=== PATIENT | female | born 1940 | race Caucasian/White ===

== ENCOUNTER → 2019-04-11 | Outpatient (CLI) | payer MEDICARE ==
[~2019-04-11] MED LIST: AMLO10 PO; ASPI81CH; Diovan320 MG; HYDACE10B PO; HYDCHL25; HYDSUL200; LOSA50; META800 PO; METTREX2.5; OLMESARTAN-HCT1 EAC1 PO; ONDA8ODT MM; VALD20 PO
== END | disposition home or self-care (01) ==
LOC: LAB EV 10:05 → LAB SHORT 10:05
DX: L03.90 Cellulitis, unspecified (principal)
CPT/HCPCS: 87070; 87205

== ENCOUNTER 2019-04-24 09:21 | Day surgery (SDC) | payer MEDICARE ==
[~2019-04-24] VITALS: Ht 149.9 cm; Wt 97.1 kg
[~2019-04-24 09:21] MED LIST changes: -AMLO10 PO; -OLMESARTAN-HCT1 EAC1 PO
[2019-04-24] MEDS ORDERED: OLMESARTAN-HCT1 EAC1 PO (10:11)
[2019-04-24] MEDS ORDERED: AMLO10 PO (10:12)
[2019-04-26] MEDS ORDERED: Norco 5-325 Ta1 EACH PO (18:39)
[2019-04-26] MEDS ORDERED: Keflex500 MG PO (18:39)
== END 2019-04-24 11:38 | disposition home or self-care (01) ==
LOC: ORSCSDS 09:21
PROVIDERS: Otolaryngology
PROC: 03BT0ZX Excision of Left Temporal Artery, Open Approach, Diagnostic (ICD-10-PCS; principal; 2019-04-24 11:30)
DX: M31.6 Other giant cell arteritis (principal); I10 Essential (primary) hypertension; F03.90 Unspecified dementia, unspecified severity, without behavioral disturbance, psychotic disturbance, mood disturbance, and anxiety; E66.01 Morbid (severe) obesity due to excess calories; Z68.41 Body mass index [BMI] 40.0-44.9, adult; Z79.899 Other long term (current) drug therapy; Z79.82 Long term (current) use of aspirin
CPT/HCPCS: 88305; 88313; J2250; J2704; J3010; J7120

== ENCOUNTER 2019-04-30 06:45 | Emergency (ER) | payer MEDICARE ==
[~2019-04-30] VITALS: Ht 149.9 cm; Wt 99.8 kg
[~2019-04-30 06:45] MED LIST changes: +AMLO10 PO; +Keflex500 MG PO; +Norco 5-325 Ta1 EACH PO; +OLMESARTAN-HCT1 EAC1 PO
[2019-04-30] MEDS ORDERED: HYDSUL200 PO (07:06)
[2019-04-30] MEDS ORDERED: VIT D3 (07:07)
== END 2019-04-30 11:00 | disposition home or self-care (01) ==
LOC: ER 06:45
DX: K59.00 Constipation, unspecified (principal); M54.5 Low back pain; R55 Syncope and collapse; Z88.8 Allergy status to other drugs, medicaments and biological substances; Z88.5 Allergy status to narcotic agent; Z79.899 Other long term (current) drug therapy; I10 Essential (primary) hypertension
CPT/HCPCS: 72100; 74018; 99283-25

== ENCOUNTER 2020-07-31 11:47 | Day surgery (SDC) | payer MEDICARE ==
[~2020-07-31] VITALS: Ht 149.9 cm; Wt 75.2 kg
[~2020-07-31 11:47] MED LIST changes: +ALEN70 PO; +ASPI325EC PO; +ATOR10 PO; +HYDSUL200 PO; +METTREX2.5 PO; +MULTIPLE VITAM1 EACH PO; +OLMESARTAN-HCT1 EAC3 PO; +VIT D3
[2020-07-31] MEDS ORDERED: Caltrate-600 W1 EACH (12:10)
== END 2020-07-31 13:50 | disposition home or self-care (01) ==
LOC: ORSCSDS 11:47
PROVIDERS: Surgery
PROC: 0DJD8ZZ Inspection of Lower Intestinal Tract, Via Natural or Artificial Opening Endoscopic (ICD-10-PCS; principal; 2020-07-31 12:45)
DX: Z12.11 Encounter for screening for malignant neoplasm of colon (principal); Z86.010 Personal history of colon polyps; I10 Essential (primary) hypertension; E66.9 Obesity, unspecified; Z68.33 Body mass index [BMI] 33.0-33.9, adult; Z79.899 Other long term (current) drug therapy
CPT/HCPCS: J2704

== ENCOUNTER → 2020-09-25 | Outpatient (CLI) | payer MEDICARE ==
[~2020-09-25] MED LIST changes: +Caltrate-600 W1 EACH
[2020-09-25 16:20] LABS: BASOPHILS ABSOLUTE AUTO 0.06 K/mm3 (0.00-0.23); BASOPHILS PERCENT AUTO 1 % (0-2); EOSINOPHILS PERCENT AUTO 1 % (0-6); Hematocrit 39.3 % (33.0-51.0); Hemoglobin 13.6 g/dL (11.5-16.0); IMMATURE GRAN ABSOLUTE AUTO 0.03 K/mm3 (0.00-0.10); IMMATURE GRAN PERCENT AUTO 0 % (0-1); LYMPHOCYTES ABSOLUTE AUTO 1.78 K/mm3 (0.84-5.20); LYMPHOCYTES PERCENT AUTO 20 % (21-46); MONOCYTES ABSOLUTE AUTO 0.98 K/mm3 (0.16-1.47); MONOCYTES PERCENT AUTO 11 % (4-13); Mean Corpuscular HGB 30.6 pg (26.0-34.0); Mean Corpuscular HGB Conc 34.6 g/dL (31.5-36.5); Mean Corpuscular Volume 89 fL (80-100); Mean Platelet Volume 11.1 fL (9.1-12.4); NEUTROPHILS ABSOLUTE AUTO 6.09 K/mm3 (1.96-9.15); NEUTROPHILS PERCENT AUTO 67 % (41-73); Platelet Count 444 K/mm3 (150-400); RDW Coefficient Variation 13.9 % (11.7-14.2); RDW Standard Deviation 44.5 fL (35.1-46.3); Red Blood Cell Count 4.44 M/mm3 (3.80-5.20); White Blood Cell Count 9.04 K/mm3 (4.00-11.30)
== END | disposition home or self-care (01) ==
LOC: LAB SHORT 14:54 → LAB 14:54
PROVIDERS: Internal Medicine Rheumatology
DX: M06.9 Rheumatoid arthritis, unspecified (principal)
CPT/HCPCS: 84450; 85025; 85651

== ENCOUNTER → 2021-01-01 | Outpatient (CLI) | payer MEDICARE ==
[2021-01-01 15:02] LABS: BASOPHILS ABSOLUTE AUTO 0.05 K/mm3 (0.00-0.23); BASOPHILS PERCENT AUTO 1 % (0-2); EOSINOPHILS ABSOLUTE AUTO 0.07 K/mm3 (0.00-0.68); EOSINOPHILS PERCENT AUTO 1 % (0-6); Hematocrit 40.7 % (33.0-51.0); Hemoglobin 13.5 g/dL (11.5-16.0); IMMATURE GRAN ABSOLUTE AUTO 0.02 K/mm3 (0.00-0.10); IMMATURE GRAN PERCENT AUTO 0 % (0-1); LYMPHOCYTES PERCENT AUTO 15 % (21-46); MONOCYTES PERCENT AUTO 9 % (4-13); Mean Corpuscular HGB 29.3 pg (26.0-34.0); Mean Corpuscular HGB Conc 33.2 g/dL (31.5-36.5); Mean Corpuscular Volume 89 fL (80-100); Mean Platelet Volume 10.7 fL (9.1-12.4); NEUTROPHILS ABSOLUTE AUTO 4.89 K/mm3 (1.96-9.15); NEUTROPHILS PERCENT AUTO 74 % (41-73); Platelet Count 426 K/mm3 (150-400); RDW Coefficient Variation 14.4 % (11.7-14.2); RDW Standard Deviation 45.7 fL (35.1-46.3); White Blood Cell Count 6.63 K/mm3 (4.00-11.30)
== END | disposition home or self-care (01) ==
LOC: LAB SHORT 09:00 → LAB 09:00
PROVIDERS: Internal Medicine Rheumatology
DX: M06.9 Rheumatoid arthritis, unspecified (principal)
CPT/HCPCS: 84450; 85025; 85651

== ENCOUNTER → 2021-04-01 | Outpatient (CLI) | payer MEDICARE ==
[2021-04-01 13:33] LABS: BASOPHILS ABSOLUTE AUTO 0.04 K/mm3 (0.00-0.23); BASOPHILS PERCENT AUTO 1 % (0-2); EOSINOPHILS ABSOLUTE AUTO 0.08 K/mm3 (0.00-0.68); EOSINOPHILS PERCENT AUTO 2 % (0-6); Hematocrit 38.9 % (33.0-51.0); Hemoglobin 13.1 g/dL (11.5-16.0); IMMATURE GRAN ABSOLUTE AUTO 0.02 K/mm3 (0.00-0.10); IMMATURE GRAN PERCENT AUTO 0 % (0-1); LYMPHOCYTES ABSOLUTE AUTO 1.09 K/mm3 (0.84-5.20); LYMPHOCYTES PERCENT AUTO 22 % (21-46); MONOCYTES ABSOLUTE AUTO 0.53 K/mm3 (0.16-1.47); MONOCYTES PERCENT AUTO 11 % (4-13); Mean Corpuscular HGB 29.8 pg (26.0-34.0); Mean Corpuscular HGB Conc 33.7 g/dL (31.5-36.5); Mean Corpuscular Volume 89 fL (80-100); Mean Platelet Volume 10.9 fL (9.1-12.4); NEUTROPHILS ABSOLUTE AUTO 3.24 K/mm3 (1.96-9.15); NEUTROPHILS PERCENT AUTO 65 % (41-73); Platelet Count 414 K/mm3 (150-400); RDW Coefficient Variation 13.8 % (11.7-14.2); RDW Standard Deviation 44.6 fL (35.1-46.3); Red Blood Cell Count 4.39 M/mm3 (3.80-5.20)
== END | disposition home or self-care (01) ==
LOC: LAB SHORT 09:35
PROVIDERS: Internal Medicine Rheumatology
DX: M06.9 Rheumatoid arthritis, unspecified (principal)
CPT/HCPCS: 84450; 85025; 85651

== ENCOUNTER → 2021-07-23 | Outpatient (CLI) | payer MEDICARE ==
[2021-07-23 13:28] LABS: BASOPHILS ABSOLUTE AUTO 0.06 K/mm3 (0.00-0.23); BASOPHILS PERCENT AUTO 1 % (0-2); EOSINOPHILS ABSOLUTE AUTO 0.16 K/mm3 (0.00-0.68); EOSINOPHILS PERCENT AUTO 2 % (0-6); Hematocrit 38.4 % (33.0-51.0); Hemoglobin 13.2 g/dL (11.5-16.0); IMMATURE GRAN ABSOLUTE AUTO 0.01 K/mm3 (0.00-0.10); IMMATURE GRAN PERCENT AUTO 0 % (0-1); LYMPHOCYTES ABSOLUTE AUTO 1.31 K/mm3 (0.84-5.20); LYMPHOCYTES PERCENT AUTO 20 % (21-46); MONOCYTES ABSOLUTE AUTO 0.77 K/mm3 (0.16-1.47); MONOCYTES PERCENT AUTO 12 % (4-13); Mean Corpuscular HGB 30.1 pg (26.0-34.0); Mean Corpuscular HGB Conc 34.4 g/dL (31.5-36.5); Mean Corpuscular Volume 88 fL (80-100); Mean Platelet Volume 10.5 fL (9.1-12.4); NEUTROPHILS ABSOLUTE AUTO 4.27 K/mm3 (1.96-9.15); NEUTROPHILS PERCENT AUTO 65 % (41-73); Platelet Count 409 K/mm3 (150-400); RDW Coefficient Variation 13.9 % (11.7-14.2); RDW Standard Deviation 44.3 fL (35.1-46.3); Red Blood Cell Count 4.38 M/mm3 (3.80-5.20); White Blood Cell Count 6.58 K/mm3 (4.00-11.30)
== END | disposition home or self-care (01) ==
LOC: LAB SHORT 09:05
PROVIDERS: Internal Medicine Rheumatology
DX: M06.9 Rheumatoid arthritis, unspecified (principal)
CPT/HCPCS: 84450; 85025; 85651

== ENCOUNTER → 2022-01-20 | Outpatient (CLI) | payer MEDICARE ==
[2022-01-20 15:30] LABS: BASOPHILS ABSOLUTE AUTO 0.06 K/mm3 (0.00-0.23); BASOPHILS PERCENT AUTO 1 % (0-2); EOSINOPHILS ABSOLUTE AUTO 0.06 K/mm3 (0.00-0.68); EOSINOPHILS PERCENT AUTO 1 % (0-6); Hematocrit 37.9 % (33.0-51.0); Hemoglobin 12.9 g/dL (11.5-16.0); IMMATURE GRAN ABSOLUTE AUTO 0.04 K/mm3 (0.00-0.10); IMMATURE GRAN PERCENT AUTO 1 % (0-1); LYMPHOCYTES ABSOLUTE AUTO 1.63 K/mm3 (0.84-5.20); LYMPHOCYTES PERCENT AUTO 22 % (21-46); MONOCYTES ABSOLUTE AUTO 0.85 K/mm3 (0.16-1.47); MONOCYTES PERCENT AUTO 11 % (4-13); Mean Corpuscular HGB 30.8 pg (26.0-34.0); Mean Corpuscular Volume 91 fL (80-100); Mean Platelet Volume 10.3 fL (9.1-12.4); NEUTROPHILS ABSOLUTE AUTO 4.86 K/mm3 (1.96-9.15); NEUTROPHILS PERCENT AUTO 65 % (41-73); Platelet Count 410 K/mm3 (150-400); RDW Coefficient Variation 14.6 % (11.7-14.2); RDW Standard Deviation 47.9 fL (35.1-46.3); Red Blood Cell Count 4.19 M/mm3 (3.80-5.20)
[2022-01-20 15:49] LABS: Albumin, Blood 2.1 g/dL (3.4-5.0); Albumin/Globulin Ratio 0.7 (0.8-1.8); Bilirubin, Total 0.3 mg/dL (0.1-1.0); Bun/Creatinine Ratio 39.7 (12.0-20.0); Calcium, Blood 8.2 mg/dL (8.5-10.1); Creatinine, Blood 0.48 mg/dL (0.40-1.00); Globulin, Blood 3.2 g/dL (2.2-4.0); Potassium, Blood 3.4 mmol/L (3.5-5.5); Total Protein, Blood 5.3 g/dL (6.4-8.2)
== END | disposition home or self-care (01) ==
LOC: LAB SHORT 09:02 → LAB 09:02
PROVIDERS: Internal Medicine Rheumatology
DX: M06.9 Rheumatoid arthritis, unspecified (principal)
CPT/HCPCS: 80053; 85025; 85651

== ENCOUNTER → 2022-05-19 | Outpatient (CLI) | payer MEDICARE ==
[~2022-05-19] MED LIST changes: +Benicar40 MG PO; +CHLO25B PO; +FOSAMAX70 MG PO; +KLOR-CON 1010 ME1 PO; +METHOTREXATE2.5 M1 PO; +METO25ER PO; +PLAQUENIL200 M1 PO; +PRED5 PO; +TRAM50 PO
[2022-05-19 18:00] LABS: BASOPHILS ABSOLUTE AUTO 0.05 K/mm3 (0.00-0.23); BASOPHILS PERCENT AUTO 0 % (0-2); EOSINOPHILS ABSOLUTE AUTO 0.07 K/mm3 (0.00-0.68); EOSINOPHILS PERCENT AUTO 1 % (0-6); Hematocrit 37.4 % (33.0-51.0); Hemoglobin 13.1 g/dL (11.5-16.0); IMMATURE GRAN ABSOLUTE AUTO 0.09 K/mm3 (0.00-0.10); IMMATURE GRAN PERCENT AUTO 1 % (0-1); LYMPHOCYTES PERCENT AUTO 13 % (21-46); MONOCYTES ABSOLUTE AUTO 0.97 K/mm3 (0.16-1.47); MONOCYTES PERCENT AUTO 8 % (4-13); Mean Corpuscular HGB 30.9 pg (26.0-34.0); Mean Corpuscular Volume 88 fL (80-100); Mean Platelet Volume 10.8 fL (9.1-12.4); NEUTROPHILS PERCENT AUTO 77 % (41-73); Platelet Count 430 K/mm3 (150-400); RDW Coefficient Variation 14.1 % (11.7-14.2); RDW Standard Deviation 45.3 fL (35.1-46.3); Red Blood Cell Count 4.24 M/mm3 (3.80-5.20); White Blood Cell Count 11.48 K/mm3 (4.00-11.30)
[2022-05-19 19:59] LABS: Albumin, Blood 2.8 g/dL (3.4-5.0); Albumin/Globulin Ratio 0.8 (0.8-1.8); Bilirubin, Total 0.4 mg/dL (0.1-1.0); Bun/Creatinine Ratio 65.3 (12.0-20.0); Calcium, Blood 9.4 mg/dL (8.5-10.1); Creatinine, Blood 0.34 mg/dL (0.40-1.00); Globulin, Blood 3.4 g/dL (2.2-4.0); Potassium, Blood 3.4 mmol/L (3.5-5.5); Total Protein, Blood 6.2 g/dL (6.4-8.2)
== END | disposition home or self-care (01) ==
LOC: LAB 14:55 → LAB SHORT 14:55
PROVIDERS: Internal Medicine Rheumatology
DX: M06.9 Rheumatoid arthritis, unspecified (principal)
CPT/HCPCS: 80053; 85025; 85651

== ENCOUNTER → 2022-11-18 | Outpatient (CLI) | payer MEDICARE ==
[2022-11-18 14:38] LABS: Albumin, Blood 2.7 g/dL (3.4-5.0); Albumin/Globulin Ratio 0.8 (0.8-1.8); Bilirubin, Total 0.4 mg/dL (0.1-1.0); Bun/Creatinine Ratio 44.8 (12.0-20.0); Calcium, Blood 8.9 mg/dL (8.5-10.1); Creatinine, Blood 0.56 mg/dL (0.40-1.00); Globulin, Blood 3.5 g/dL (2.2-4.0); Potassium, Blood 4.7 mmol/L (3.5-5.5); Total Protein, Blood 6.2 g/dL (6.4-8.2)
[2022-11-18 14:52] LABS: BASOPHILS ABSOLUTE AUTO 0.07 K/mm3 (0.00-0.23); BASOPHILS PERCENT AUTO 1 % (0-2); EOSINOPHILS ABSOLUTE AUTO 0.03 K/mm3 (0.00-0.68); EOSINOPHILS PERCENT AUTO 0 % (0-6); Hematocrit 35.5 % (33.0-51.0); Hemoglobin 12.4 g/dL (11.5-16.0); IMMATURE GRAN ABSOLUTE AUTO 0.11 K/mm3 (0.00-0.10); IMMATURE GRAN PERCENT AUTO 1 % (0-1); LYMPHOCYTES ABSOLUTE AUTO 1.43 K/mm3 (0.84-5.20); LYMPHOCYTES PERCENT AUTO 14 % (21-46); MONOCYTES PERCENT AUTO 10 % (4-13); Mean Corpuscular HGB 30.3 pg (26.0-34.0); Mean Corpuscular HGB Conc 34.9 g/dL (31.5-36.5); Mean Corpuscular Volume 87 fL (80-100); Mean Platelet Volume 10.6 fL (9.1-12.4); NEUTROPHILS ABSOLUTE AUTO 7.93 K/mm3 (1.96-9.15); NEUTROPHILS PERCENT AUTO 75 % (41-73); Platelet Count 430 K/mm3 (150-400); RDW Coefficient Variation 14.3 % (11.7-14.2); RDW Standard Deviation 44.9 fL (35.1-46.3); Red Blood Cell Count 4.09 M/mm3 (3.80-5.20); White Blood Cell Count 10.57 K/mm3 (4.00-11.30)
== END | disposition home or self-care (01) ==
LOC: LAB 13:12 → LAB SHORT 13:12
PROVIDERS: Internal Medicine Rheumatology
DX: M06.9 Rheumatoid arthritis, unspecified (principal)
CPT/HCPCS: 80053; 85025; 85651

== ENCOUNTER 2022-11-26 07:31 | Inpatient (IN) | payer MEDICARE ==
[~2022-11-26] VITALS: Ht 149.9 cm; Wt 96.0 kg
[2022-11-26 08:26] LABS: BASOPHILS ABSOLUTE AUTO 0.04 K/mm3 (0.00-0.23); BASOPHILS PERCENT AUTO 0 % (0-2); EOSINOPHILS ABSOLUTE AUTO 0.01 K/mm3 (0.00-0.68); EOSINOPHILS PERCENT AUTO 0 % (0-6); Hematocrit 34.4 % (33.0-51.0); Hemoglobin 12.4 g/dL (11.5-16.0); IMMATURE GRAN ABSOLUTE AUTO 0.21 K/mm3 (0.00-0.10); IMMATURE GRAN PERCENT AUTO 1 % (0-1); LYMPHOCYTES ABSOLUTE AUTO 0.86 K/mm3 (0.84-5.20); LYMPHOCYTES PERCENT AUTO 5 % (21-46); MONOCYTES PERCENT AUTO 8 % (4-13); Mean Corpuscular HGB 30.2 pg (26.0-34.0); Mean Corpuscular Volume 84 fL (80-100); Mean Platelet Volume 9.6 fL (9.1-12.4); NEUTROPHILS ABSOLUTE AUTO 15.14 K/mm3 (1.96-9.15); NEUTROPHILS PERCENT AUTO 85 % (41-73); Platelet Count 417 K/mm3 (150-400); RDW Coefficient Variation 13.7 % (11.7-14.2); RDW Standard Deviation 41.3 fL (35.1-46.3); White Blood Cell Count 17.76 K/mm3 (4.00-11.30)
[2022-11-26 08:36] LABS: Source, Urine Clean Catch
[2022-11-26 08:38] LABS: Appearance, Urine Clear (Clear); Bilirubin, Urine Neg (Neg); Blood, Urine 4+ (Neg); Color, Urine Yellow (P-Yellow); Glucose Qualitative, Urine Neg (Neg); Ketones, Urine Neg (Neg); Leukocyte Esterase, Urine Neg (Neg); Nitrite, Urine Neg (Neg); Protein, Urine 4+ (Neg); Specific Gravity, Urine 1.015 (1.003-1.022); Urobilinogen, Urine NORM (Normal)
[2022-11-26 08:45] LABS: Amorphous Light (0-Heavy); Bacteria Few /hpf; Granular Casts 0-2 /lpf (0); Hyaline Casts 0-2 /lpf (0-2); Mucus Light (0-Heavy); Squamous Epithelial Cells Rare /hpf (Few); White Blood Cells, Urine 0-2 /hpf (0-5)
[2022-11-26 08:48] LABS: Albumin, Blood 2.5 g/dL (3.4-5.0); Albumin/Globulin Ratio 0.7 (0.8-1.8); Bilirubin, Total 0.7 mg/dL (0.1-1.0); Bun/Creatinine Ratio 31.1 (12.0-20.0); Calcium, Blood 9.2 mg/dL (8.5-10.1); Creatinine, Blood 0.51 mg/dL (0.40-1.00); Globulin, Blood 3.8 g/dL (2.2-4.0); Potassium, Blood 4.1 mmol/L (3.5-5.5); Total Protein, Blood 6.3 g/dL (6.4-8.2)
[2022-11-26] MEDS ORDERED: SPIRONOLACTONE50 MG PO (11:50)
[2022-11-26 13:14] VITALS: BP 149/75
[2022-11-26 13:16] VITALS: BP 203/55
[2022-11-26 15:03] VITALS: BP 167/50
--- NOTE | 2022-11-26 15:36 | NUR ---
PT ADMITTED TO ROOM. CALLED DR BUITRAGO BP NEDS START TO START ALL LBP MEDS NOW. HOLD METOPROLOL NITE DOSE UNTIL TOMORROW, STARTING 6 HRS EARLY.
--- NOTE | 2022-11-26 16:52 | NUR ---
Pt. gopal awake in bed and welcomes my visit. Pts. sister is present. Pt. is pleasant. Facilitiate a life review including details of her present condition. 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 Pt. displays evidence of engagement and awareness, Prayed with Pt. Pt. verbalized gratitude for the spiritual care visit.
--- NOTE | 2022-11-26 17:29 | NUR ---
PT CHART REVEIWED FOR ADMISSION
[2022-11-26 17:36] VITALS: BP 163/65
--- NOTE | 2022-11-26 17:53 | NUR ---
PT PLEASANT SINCE ADMIT TO FLOOR. MEDICATED FOR NAUSEA AND PAIN ONCE THIS SHIFT. PT STATES FEELS SOME BETTER. SODIUM UP TO 122 FROM 119. SOME PAIN FROM ANKLE, NO OTHER CONCERNS NOTED. FAMILY ASKED ABOUT WBC. ADVISED HER TO SPEAK TO TOMORROW WHEN IN ROOM. BED IN LOW POSITION, CALL LITE IN REACH, CALLS APPROP
[2022-11-26 19:35] VITALS: BP 159/51
--- NOTE | 2022-11-27 04:16 | NUR ---
SHIFT SUMMARY PATIENT HAD NO ACUTE CHANGES. AXOX 3 AND BEDREST REPORTING SHE IS TOO WEAK THIS SHIFT TO USE BSC. USED BEDPAN AND NOW PUREWICK IN PLACE. REPORTED LEFT FOOT PAIN AND ULTRAM 50 MG GIVEN PER EMAR. DENIES CHEST PAIN, SOB, AND N/V. VSS/AFEBRILE. PIV REMAINS INTACT. TELE MONITOR NSR 61. CALL LIGHT IN REACH. BED IN LOWEST POSITION. WILL CONTINUE TO MONITOR UNTIL DAY SHIFT NURSE ASSUMES CARE.
[2022-11-27 04:33] VITALS: BP 139/53
[2022-11-27 05:44] LABS: BASOPHILS ABSOLUTE AUTO 0.03 K/mm3 (0.00-0.23); BASOPHILS PERCENT AUTO 0 % (0-2); EOSINOPHILS ABSOLUTE AUTO 0.01 K/mm3 (0.00-0.68); EOSINOPHILS PERCENT AUTO 0 % (0-6); Hematocrit 31.3 % (33.0-51.0); Hemoglobin 11.4 g/dL (11.5-16.0); IMMATURE GRAN ABSOLUTE AUTO 0.22 K/mm3 (0.00-0.10); IMMATURE GRAN PERCENT AUTO 1 % (0-1); LYMPHOCYTES ABSOLUTE AUTO 1.45 K/mm3 (0.84-5.20); LYMPHOCYTES PERCENT AUTO 8 % (21-46); MONOCYTES ABSOLUTE AUTO 1.74 K/mm3 (0.16-1.47); MONOCYTES PERCENT AUTO 9 % (4-13); Mean Corpuscular HGB 30.4 pg (26.0-34.0); Mean Corpuscular HGB Conc 36.4 g/dL (31.5-36.5); Mean Corpuscular Volume 84 fL (80-100); NEUTROPHILS ABSOLUTE AUTO 14.98 K/mm3 (1.96-9.15); NEUTROPHILS PERCENT AUTO 81 % (41-73); Platelet Count 387 K/mm3 (150-400); RDW Coefficient Variation 13.8 % (11.7-14.2); RDW Standard Deviation 41.1 fL (35.1-46.3); Red Blood Cell Count 3.75 M/mm3 (3.80-5.20); White Blood Cell Count 18.43 K/mm3 (4.00-11.30)
[2022-11-27 06:02] LABS: Bun/Creatinine Ratio 32.8 (12.0-20.0); Calcium, Blood 8.3 mg/dL (8.5-10.1); Creatinine, Blood 0.58 mg/dL (0.40-1.00); Potassium, Blood 4.2 mmol/L (3.5-5.5)
[2022-11-27 07:18] VITALS: BP 164/52
[2022-11-27 15:31] VITALS: BP 148/49
--- NOTE | 2022-11-27 17:26 | NUR ---
PT PLEASANT TODAY. HAS HAD VISITORS. NO C/O PAIN TODAY. DID GET XRAY OF CHEST. SODIUM LEVEL. STATES SOME BETTER. NO NEW CONCERNS NOTED. BED IN LOW POSITION, CALL LITE IN REACH, CALLS APPROP
[2022-11-27 19:25] VITALS: BP 152/77
[2022-11-28] VITALS (7 sets, daily range): BP systolic 153–179; BP diastolic 49–80
--- NOTE | 2022-11-28 04:29 | NUR ---
SHIFT SUMMARY PATIENT IS OF PLEASANT AFFECT, ALERT AND ORIENTED TO PERSON, PLACE, SITUATION AND SELF. SHE IS ABLE TO MAKE HER NEEDS KNOWN, UP TO THE BEDSIDE COMMONDE TONIGHT. PATIENT PAIN ASSESSED AND TREATED PER EMAR. SHE DENIES CHEST PAIN, OR PRESSURE. PATIENT IS ABLE TO MAKE HER NEEDS KNOW AND CALLS APPROPRIATELY. BED IS IN THE LOWEST POSITION, CALL LIGHT WITHIN REACH. NO S/S OF DISTRESS AT THIS TIME.
--- NOTE | 2022-11-28 06:10 | NUR ---
NOTES AND ASSESSMENTS REVIEWED.
[2022-11-28 07:25] LABS: BASOPHILS ABSOLUTE AUTO 0.03 K/mm3 (0.00-0.23); BASOPHILS PERCENT AUTO 0 % (0-2); EOSINOPHILS ABSOLUTE AUTO 0.05 K/mm3 (0.00-0.68); EOSINOPHILS PERCENT AUTO 0 % (0-6); Hemoglobin 10.6 g/dL (11.5-16.0); IMMATURE GRAN ABSOLUTE AUTO 0.21 K/mm3 (0.00-0.10); IMMATURE GRAN PERCENT AUTO 1 % (0-1); LYMPHOCYTES ABSOLUTE AUTO 1.05 K/mm3 (0.84-5.20); LYMPHOCYTES PERCENT AUTO 7 % (21-46); MONOCYTES ABSOLUTE AUTO 1.48 K/mm3 (0.16-1.47); MONOCYTES PERCENT AUTO 10 % (4-13); Mean Corpuscular HGB 30.5 pg (26.0-34.0); Mean Corpuscular HGB Conc 35.3 g/dL (31.5-36.5); Mean Corpuscular Volume 86 fL (80-100); Mean Platelet Volume 10.2 fL (9.1-12.4); NEUTROPHILS ABSOLUTE AUTO 12.76 K/mm3 (1.96-9.15); NEUTROPHILS PERCENT AUTO 82 % (41-73); Platelet Count 349 K/mm3 (150-400); RDW Coefficient Variation 14.1 % (11.7-14.2); RDW Standard Deviation 43.7 fL (35.1-46.3); Red Blood Cell Count 3.48 M/mm3 (3.80-5.20); White Blood Cell Count 15.58 K/mm3 (4.00-11.30)
[2022-11-28 07:47] LABS: Bun/Creatinine Ratio 39.6 (12.0-20.0); Calcium, Blood 7.3 mg/dL (8.5-10.1); Creatinine, Blood 0.63 mg/dL (0.40-1.00); Potassium, Blood 3.8 mmol/L (3.5-5.5)
--- NOTE | 2022-11-28 15:39 | NUR ---
CALL PLACED TO DR RENTERIA FOR DR FLORES AT 1445 REGARDING NORMAL SALINE ORDER AND SODIUM LEVEL AT 126. PER DR RENTERIA, HOLD OFF ON NEW BAG OF NS FOR NOW, WAIT UNTIL RESULTS IN AT 1500 FOR NEW SODIUM LEVEL AND THEN WILL ADVISE.
--- NOTE | 2022-11-28 19:39 | NUR ---
SHIFT SUMMARY PATIENT WITH NO ACUTE EVENTS DURING SHIFT. SHE IS INCREASING IN STRENGTH AND UP TO BATHROOM WITH WALKER AND SBA WITH PT AND LATER WITH THIS RN. BED IN LOW POSITION, CALL LIGHT IN REACH. PATIENT CALLS APPROPRIATELY.
[2022-11-29] VITALS (7 sets, daily range): BP systolic 145–181; BP diastolic 60–67
--- NOTE | 2022-11-29 04:51 | NUR ---
SHIFT SUMMARY; NO ACUTE CHANGES OVERNIGHT. THE PT IS AXO X4 AND A STANDBY ASSIST. THE PT HAS BEEN SLEEPING MOST OF THE NIGHT. THE PT IS SINUS KOKO W/ A 1ST DEGREE HEART BLOCK, HR HAS BEEN IN THE 50'S. THE PT HAS NOT HAD ANY NS RUNNING T/O THE NIGHT ACCORDING TO DAYSHIFT RN DR. RENTERIA ADVISED TO HOLD OFF ON FLUID FOR NOW AND WAIT TO SEE WHAT 1500 SODIUM LEVEL WAS OF 11/28/22 AND THEN HE WOULD ADVISE ON WHETHER OR NOT TO RESTART FLUIDS. PER JESS CARVAJAL, SHE WAS NEVER DIRECTED TO RESUME FLUIDS. THE PT DENIES ANY SOB, CHEST PAIN/PRESSURE, N/V OR PAIN THIS SHIFT. CURRENTLY THE PT IS SLEEPING IN BED WITH THE BED IN THE LOWEST POSITION AND THE CALL LIGHT AT BEDSIDE. FIRE SAFETY MAINTAINED T/O THE NIGHT.
[2022-11-29 05:01] LABS: BASOPHILS ABSOLUTE AUTO 0.07 K/mm3 (0.00-0.23); BASOPHILS PERCENT AUTO 1 % (0-2); EOSINOPHILS ABSOLUTE AUTO 0.11 K/mm3 (0.00-0.68); EOSINOPHILS PERCENT AUTO 1 % (0-6); Hematocrit 29.9 % (33.0-51.0); Hemoglobin 10.3 g/dL (11.5-16.0); IMMATURE GRAN ABSOLUTE AUTO 0.16 K/mm3 (0.00-0.10); IMMATURE GRAN PERCENT AUTO 1 % (0-1); LYMPHOCYTES ABSOLUTE AUTO 1.38 K/mm3 (0.84-5.20); LYMPHOCYTES PERCENT AUTO 12 % (21-46); MONOCYTES ABSOLUTE AUTO 1.15 K/mm3 (0.16-1.47); MONOCYTES PERCENT AUTO 10 % (4-13); Mean Corpuscular HGB 29.8 pg (26.0-34.0); Mean Corpuscular HGB Conc 34.4 g/dL (31.5-36.5); Mean Corpuscular Volume 86 fL (80-100); Mean Platelet Volume 9.8 fL (9.1-12.4); NEUTROPHILS ABSOLUTE AUTO 8.73 K/mm3 (1.96-9.15); NEUTROPHILS PERCENT AUTO 75 % (41-73); Platelet Count 376 K/mm3 (150-400); RDW Coefficient Variation 14.2 % (11.7-14.2); Red Blood Cell Count 3.46 M/mm3 (3.80-5.20)
[2022-11-29 05:29] LABS: Bun/Creatinine Ratio 45.3 (12.0-20.0); Calcium, Blood 7.7 mg/dL (8.5-10.1); Creatinine, Blood 0.55 mg/dL (0.40-1.00); Potassium, Blood 4.3 mmol/L (3.5-5.5)
--- NOTE | 2022-11-29 07:38 | NUR ---
ASSUMED CARE: PT RESTING IN BED, DOCTOR AT BEDSIDE.SINUS KOKO WITH A FIRST DEGREE BLOCK AT 55 ON TELE. NO FURTHER NEEDS OR CONCERNS AT THIS TIME.
--- NOTE | 2022-11-29 10:38 | NUR ---
pt ambulating in [place] with physical therapy assistance
--- NOTE | 2022-11-29 18:21 | NUR ---
SHIFT SUMMARY: PT INDEPENDENT IN ROOM, AMBULATED WITH PHYSICAL THERAPY IN [place] TODAY. PLANS FOR DC TOMORROW IF AM LABS CONTINUE TO IMPROVE. PT DENIES NEEDS OR CONCERNS AT THIS TIME.
[2022-11-30 04:22] VITALS: BP 155/77
[2022-11-30 05:52] LABS: BASOPHILS ABSOLUTE AUTO 0.07 K/mm3 (0.00-0.23); BASOPHILS PERCENT AUTO 1 % (0-2); EOSINOPHILS ABSOLUTE AUTO 0.16 K/mm3 (0.00-0.68); EOSINOPHILS PERCENT AUTO 2 % (0-6); Hematocrit 31.2 % (33.0-51.0); Hemoglobin 10.9 g/dL (11.5-16.0); IMMATURE GRAN ABSOLUTE AUTO 0.17 K/mm3 (0.00-0.10); IMMATURE GRAN PERCENT AUTO 2 % (0-1); LYMPHOCYTES ABSOLUTE AUTO 1.92 K/mm3 (0.84-5.20); LYMPHOCYTES PERCENT AUTO 21 % (21-46); MONOCYTES ABSOLUTE AUTO 0.87 K/mm3 (0.16-1.47); MONOCYTES PERCENT AUTO 9 % (4-13); Mean Corpuscular HGB 30.7 pg (26.0-34.0); Mean Corpuscular HGB Conc 34.9 g/dL (31.5-36.5); Mean Corpuscular Volume 88 fL (80-100); NEUTROPHILS ABSOLUTE AUTO 6.05 K/mm3 (1.96-9.15); NEUTROPHILS PERCENT AUTO 66 % (41-73); Platelet Count 446 K/mm3 (150-400); RDW Coefficient Variation 14.6 % (11.7-14.2); RDW Standard Deviation 46.7 fL (35.1-46.3); Red Blood Cell Count 3.55 M/mm3 (3.80-5.20); White Blood Cell Count 9.24 K/mm3 (4.00-11.30)
[2022-11-30 06:42] LABS: Anion Gap 5 mmol/L (6-16); Blood Urea Nitrogen 21 mg/dL (8-24); Bun/Creatinine Ratio 38.9 (12.0-20.0); CO2, Blood 24 mmol/L (21-32); Chloride, Blood 103 mmol/L (98-108); Creatinine, Blood 0.54 mg/dL (0.40-1.00); Glomerular Filtration Rate 92 (60-); Glucose, Blood 93 mg/dL (70-99); Phosphorus, Blood 1.7 mg/dL (2.5-4.9); Sodium, Blood 132 mmol/L (136-145)
--- NOTE | 2022-11-30 06:43 | NUR ---
SHIFT SUMMARY NO EVENTS OVERNIGHT, NO C/O PAIN. FIRE SAFETY REVIEWED, NO IGNITION SOURCES
[2022-11-30 07:13] VITALS: BP 148/57
[2022-11-30] MEDS ORDERED: FOLI1 PO (11:06)
--- NOTE | 2022-11-30 12:50 | NUR ---
DISCHARGE SUMMARY DISCHARGE PACKET GIVEN AND REVIEWED, PATIENT HAD NO QUESTIONS AT THIS TIME. IV REMOVED PRIOR TO DISCHARGE. SKIN IN GOOD CONDITION ON LEAVING. DISCHARGED VIA WHEELCHAIR WITH SISTER TO DRIVE.
== END 2022-11-30 11:45 | disposition home or self-care (01) | DRG 641 ==
LOC: ER 07:31 → MEDS 07:32 → ENPENDDIS 11-30 10:58 → MEDS 11-30 11:45
PROVIDERS: Emergency Medicine; Family Medicine; ADMIT Internal Medicine
DX: E87.1 Hypo-osmolality and hyponatremia (principal); Z68.41 Body mass index [BMI] 40.0-44.9, adult; E87.8 Other disorders of electrolyte and fluid balance, not elsewhere classified; I10 Essential (primary) hypertension; I35.0 Nonrheumatic aortic (valve) stenosis; M31.6 Other giant cell arteritis; D72.828 Other elevated white blood cell count; E78.5 Hyperlipidemia, unspecified; E66.9 Obesity, unspecified; R53.1 Weakness; M06.9 Rheumatoid arthritis, unspecified; Z88.5 Allergy status to narcotic agent; Z88.8 Allergy status to other drugs, medicaments and biological substances; Z79.899 Other long term (current) drug therapy; Z90.89 Acquired absence of other organs; Z90.49 Acquired absence of other specified parts of digestive tract; Z90.710 Acquired absence of both cervix and uterus; Z98.890 Other specified postprocedural states; Z87.81 Personal history of (healed) traumatic fracture; Z98.49 Cataract extraction status, unspecified eye
CPT/HCPCS: 36415; 71046; 74177; 80048; 80053; 80069; 81001; 83690; 83930; 84145; 84295; 85025; 93005; 93010; 96360-59; 96361; 96361-59; 96372; 96374; 97110; 97116; 97161; 97165; 97530; 97535; 99285-25; A9270; G0378; J0360; J1650; J2405; J7030; J7512; J8610; Q9967

== ENCOUNTER → 2023-02-16 | Outpatient (CLI) | payer MEDICARE ==
[~2023-02-16] MED LIST changes: +CALCIUM 600-VI1 EAC3 PO; -Caltrate-600 W1 EACH; +FOLI1 PO; +LEVO750 PO; +SPIRONOLACTONE50 MG PO; +VISBIOME 112.51 EACH PO
[2023-02-16 13:16] LABS: BASOPHILS ABSOLUTE AUTO 0.05 K/mm3 (0.00-0.23); BASOPHILS PERCENT AUTO 1 % (0-2); EOSINOPHILS ABSOLUTE AUTO 0.09 K/mm3 (0.00-0.68); EOSINOPHILS PERCENT AUTO 1 % (0-6); Hematocrit 37.4 % (33.0-51.0); Hemoglobin 12.2 g/dL (11.5-16.0); IMMATURE GRAN ABSOLUTE AUTO 0.07 K/mm3 (0.00-0.10); IMMATURE GRAN PERCENT AUTO 1 % (0-1); LYMPHOCYTES PERCENT AUTO 14 % (21-46); MONOCYTES ABSOLUTE AUTO 0.82 K/mm3 (0.16-1.47); MONOCYTES PERCENT AUTO 9 % (4-13); Mean Corpuscular HGB 30.9 pg (26.0-34.0); Mean Corpuscular HGB Conc 32.6 g/dL (31.5-36.5); Mean Corpuscular Volume 95 fL (80-100); Mean Platelet Volume 10.8 fL (9.1-12.4); NEUTROPHILS ABSOLUTE AUTO 7.15 K/mm3 (1.96-9.15); NEUTROPHILS PERCENT AUTO 76 % (41-73); Platelet Count 381 K/mm3 (150-400); RDW Coefficient Variation 14.3 % (11.7-14.2); RDW Standard Deviation 49.2 fL (35.1-46.3); Red Blood Cell Count 3.95 M/mm3 (3.80-5.20); White Blood Cell Count 9.48 K/mm3 (4.00-11.30)
[2023-02-16 13:58] LABS: Albumin, Blood 2.9 g/dL (3.4-5.0); Albumin/Globulin Ratio 0.8 (0.8-1.8); Bilirubin, Total 0.3 mg/dL (0.1-1.0); Bun/Creatinine Ratio 44.7 (12.0-20.0); Calcium, Blood 9.8 mg/dL (8.5-10.1); Creatinine, Blood 0.54 mg/dL (0.40-1.00); Globulin, Blood 3.8 g/dL (2.2-4.0); Potassium, Blood 4.2 mmol/L (3.5-5.5); Total Protein, Blood 6.7 g/dL (6.4-8.2)
== END | disposition home or self-care (01) ==
LOC: LAB 08:50 → LAB SHORT 08:50
PROVIDERS: Internal Medicine Rheumatology
DX: M06.9 Rheumatoid arthritis, unspecified (principal)
CPT/HCPCS: 80053; 85025; 85651

== ENCOUNTER → 2023-05-19 | Outpatient (CLI) | payer MEDICARE ==
[2023-05-19 12:51] LABS: BASOPHILS ABSOLUTE AUTO 0.06 K/mm3 (0.00-0.23); BASOPHILS PERCENT AUTO 1 % (0-2); EOSINOPHILS ABSOLUTE AUTO 0.07 K/mm3 (0.00-0.68); EOSINOPHILS PERCENT AUTO 1 % (0-6); Hemoglobin 12.7 g/dL (11.5-16.0); IMMATURE GRAN ABSOLUTE AUTO 0.08 K/mm3 (0.00-0.10); IMMATURE GRAN PERCENT AUTO 1 % (0-1); LYMPHOCYTES ABSOLUTE AUTO 1.63 K/mm3 (0.84-5.20); LYMPHOCYTES PERCENT AUTO 15 % (21-46); MONOCYTES ABSOLUTE AUTO 1.05 K/mm3 (0.16-1.47); MONOCYTES PERCENT AUTO 10 % (4-13); Mean Corpuscular HGB 30.6 pg (26.0-34.0); Mean Corpuscular HGB Conc 33.4 g/dL (31.5-36.5); Mean Corpuscular Volume 92 fL (80-100); Mean Platelet Volume 10.8 fL (9.1-12.4); NEUTROPHILS ABSOLUTE AUTO 7.79 K/mm3 (1.96-9.15); NEUTROPHILS PERCENT AUTO 73 % (41-73); Platelet Count 381 K/mm3 (150-400); RDW Coefficient Variation 14.2 % (11.7-14.2); RDW Standard Deviation 47.3 fL (35.1-46.3); Red Blood Cell Count 4.15 M/mm3 (3.80-5.20); White Blood Cell Count 10.68 K/mm3 (4.00-11.30)
[2023-05-19 13:14] LABS: Bilirubin, Total 0.4 mg/dL (0.1-1.0); Bun/Creatinine Ratio 34.5 (12.0-20.0); Calcium, Blood 9.7 mg/dL (8.5-10.1); Creatinine, Blood 0.58 mg/dL (0.40-1.00); Globulin, Blood 3.1 g/dL (2.2-4.0); Potassium, Blood 4.2 mmol/L (3.5-5.5); Total Protein, Blood 6.1 g/dL (6.4-8.2)
== END ==
LOC: LAB 12:01 → LAB SHORT 12:01
PROVIDERS: Internal Medicine Rheumatology
DX: M06.9 Rheumatoid arthritis, unspecified (principal)
CPT/HCPCS: 80053; 85025; 85651

== ENCOUNTER 2023-09-15 15:59 | Emergency (ER) | payer MEDICARE ==
[~2023-09-15] VITALS: Ht 149.9 cm; Wt 104.3 kg
[2023-09-15] MEDS ORDERED: Ondansetron HCl 2 MG / ML 2ML Vial IV PRN (16:10)
[2023-09-15 16:26] LABS: BASOPHILS ABSOLUTE AUTO 0.06 K/mm3 (0.00-0.23); BASOPHILS PERCENT AUTO 1 % (0-2); EOSINOPHILS ABSOLUTE AUTO 0.05 K/mm3 (0.00-0.68); EOSINOPHILS PERCENT AUTO 0 % (0-6); Hematocrit 35.9 % (33.0-51.0); Hemoglobin 12.1 g/dL (11.5-16.0); IMMATURE GRAN ABSOLUTE AUTO 0.11 K/mm3 (0.00-0.10); IMMATURE GRAN PERCENT AUTO 1 % (0-1); LYMPHOCYTES ABSOLUTE AUTO 1.95 K/mm3 (0.84-5.20); LYMPHOCYTES PERCENT AUTO 16 % (21-46); MONOCYTES ABSOLUTE AUTO 1.05 K/mm3 (0.16-1.47); MONOCYTES PERCENT AUTO 9 % (4-13); Mean Corpuscular HGB 30.9 pg (26.0-34.0); Mean Corpuscular HGB Conc 33.7 g/dL (31.5-36.5); Mean Corpuscular Volume 92 fL (80-100); Mean Platelet Volume 10.5 fL (9.1-12.4); NEUTROPHILS ABSOLUTE AUTO 8.89 K/mm3 (1.96-9.15); NEUTROPHILS PERCENT AUTO 73 % (41-73); Platelet Count 361 K/mm3 (150-400); RDW Coefficient Variation 13.7 % (11.7-14.2); Red Blood Cell Count 3.92 M/mm3 (3.80-5.20); White Blood Cell Count 12.11 K/mm3 (4.00-11.30)
[2023-09-15 16:37] LABS: Albumin, Blood 2.9 g/dL (3.4-5.0); Albumin/Globulin Ratio 0.7 (0.8-1.8); Bilirubin, Total 0.3 mg/dL (0.1-1.0); Bun/Creatinine Ratio 30.5 (12.0-20.0); Creatinine, Blood 0.72 mg/dL (0.40-1.00); Globulin, Blood 3.9 g/dL (2.2-4.0); Potassium, Blood 4.1 mmol/L (3.5-5.5); Total Protein, Blood 6.8 g/dL (6.4-8.2)
[2023-09-15 17:17] LABS: Source, Urine Fem Cath
[2023-09-15 17:19] LABS: Appearance, Urine Clear (Clear); Bilirubin, Urine Neg (Neg); Blood, Urine 4+ (Neg); Color, Urine Yellow (P-Yellow); Glucose Qualitative, Urine Neg (Neg); Ketones, Urine Neg (Neg); Leukocyte Esterase, Urine Neg (Neg); Nitrite, Urine Neg (Neg); Protein, Urine 3+ (Neg); Urobilinogen, Urine NORM (Normal); pH, Urine 6.5 (5.0-8.0)
[2023-09-15 17:54] LABS: Squamous Epithelial Cells Few /hpf (Few); White Blood Cells, Urine 0-2 /hpf (0-5)
[2023-09-15 17:55] LABS: Bacteria Few /hpf
[2023-09-15 18:30] VITALS: BP 187/62
== END 2023-09-15 19:00 | disposition home or self-care (01) ==
LOC: ER 15:59
PROVIDERS: Student in an Organized Health Care Education/Training Program
DX: R53.1 Weakness (principal); Z88.8 Allergy status to other drugs, medicaments and biological substances; Z88.5 Allergy status to narcotic agent; Z79.899 Other long term (current) drug therapy; Z79.52 Long term (current) use of systemic steroids; M06.9 Rheumatoid arthritis, unspecified; I10 Essential (primary) hypertension
CPT/HCPCS: 71046; 80053; 81001; 82947; 83735; 85025; 93005; 93010; 99285-25

== ENCOUNTER 2023-11-11 15:55 | Inpatient (IN) | payer MEDICARE ==
[~2023-11-11] VITALS: Ht 149.9 cm; Wt 106.4 kg
[2023-11-11 16:54] LABS: Influenza A, PCR NEGATIVE (NEGATIVE); Influenza B, PCR NEGATIVE (NEGATIVE); Resp Syncytial Virus, PCR NEGATIVE (NEGATIVE); SARS-Cov-2 (COVID-19) PCR, MMC NEGATIVE (NEGATIVE)
[2023-11-11] MEDS ORDERED: Furosemide 10 MG/ML 4ML Vial IV ONE (17:00)
[2023-11-11 17:27] LABS: Albumin, Blood 2.7 g/dL (3.4-5.0); Albumin/Globulin Ratio 0.7 (0.8-1.8); Bilirubin, Total 0.5 mg/dL (0.1-1.0); Bun/Creatinine Ratio 24.5 (12.0-20.0); Calcium, Blood 9.3 mg/dL (8.5-10.1); Creatinine, Blood 0.45 mg/dL (0.40-1.00); Potassium, Blood 4.4 mmol/L (3.5-5.5); Total Protein, Blood 6.7 g/dL (6.4-8.2)
[2023-11-11 17:29] LABS: BASOPHILS ABSOLUTE AUTO 0.06 K/mm3 (0.00-0.23); BASOPHILS PERCENT AUTO 1 % (0-2); EOSINOPHILS ABSOLUTE AUTO 0.04 K/mm3 (0.00-0.68); EOSINOPHILS PERCENT AUTO 0 % (0-6); Hematocrit 39.4 % (33.0-51.0); Hemoglobin 13.4 g/dL (11.5-16.0); IMMATURE GRAN ABSOLUTE AUTO 0.09 K/mm3 (0.00-0.10); IMMATURE GRAN PERCENT AUTO 1 % (0-1); LYMPHOCYTES ABSOLUTE AUTO 1.62 K/mm3 (0.84-5.20); LYMPHOCYTES PERCENT AUTO 15 % (21-46); MONOCYTES ABSOLUTE AUTO 0.87 K/mm3 (0.16-1.47); MONOCYTES PERCENT AUTO 8 % (4-13); Mean Corpuscular Volume 88 fL (80-100); Mean Platelet Volume 11.1 fL (9.1-12.4); NEUTROPHILS ABSOLUTE AUTO 8.34 K/mm3 (1.96-9.15); NEUTROPHILS PERCENT AUTO 76 % (41-73); Platelet Count 387 K/mm3 (150-400); RDW Coefficient Variation 14.3 % (11.7-14.2); RDW Standard Deviation 45.3 fL (35.1-46.3); Red Blood Cell Count 4.47 M/mm3 (3.80-5.20); White Blood Cell Count 11.02 K/mm3 (4.00-11.30)
[2023-11-11] MEDS ORDERED: HydrALAZINE HCl 20 MG / ML 1ML Vial IV ONE (19:55)
[2023-11-11] MEDS ORDERED: Ondansetron HCl 2 MG / ML 2ML Vial IV PRN (20:55)
[2023-11-11] MEDS ORDERED: Losartan Potassium 50 MG Tab PO SCH (21:00)
[2023-11-11] MEDS ORDERED: AmLODIPine Besylate 5 MG Tab PO SCH (21:00)
[2023-11-11] MEDS ORDERED: HydrALAZINE HCl 20 MG / ML 1ML Vial IV PRN (21:00)
[2023-11-11 21:16] LABS: Thyroid Stimulating Hormone 2.09 uIU/mL (0.360-4.800)
[2023-11-11] MEDS ORDERED: Metoprolol Succinate 50 MG TABCR PO SCH (22:00)
[2023-11-11 22:24] VITALS: BP 184/59
[2023-11-11] MEDS ORDERED: METO50ER PO (22:29)
[2023-11-12] VITALS (55 sets, daily range): BP systolic 93–209; BP diastolic 46–103
--- NOTE | 2023-11-12 | NUR ---
ARRIVAL TO PCU: PT ARRIVED TO PCU-7 AT 2213 VIA GURNEY. ABLE TO STAND & TRANSFER W/ STAFF ASSIST. PT ALERT, ORIENTED X4. ABLE TO COMMUNICATE NEEDS W/ STAFF & ANSWER QUESTIONS APPROPRIATELY. SBP 180'S ON ARRIVAL, DOWN TO 150'S APPROX 2HRS LATER. DENIES CHEST PAIN/PRESSURE. HR 60-70'S, SINUS RHYTHM ON TELE. SPO2 >90% ON ROOM AIR, RESPIRATIONS EVEN & UNLABORED. LUNGS SOUNDS W/ CRACKLES IN BASES. BT+ IN ALL QUADRANTS. ABLE TO AMBULATE W/ FWW & 1P ASSIST TO BATHROOM. PUREWICK PLACED WHEN BACK IN BED PER PT REQUEST W/ DIURESIS. ABLE TO MOVE INDEPENDENTLY IN BED. ORIENTED TO ROOM/UNIT/CALL LIGHT. FIRE SAFETY/IGNITION RISK ASSESSED; PT IS NEVER SMOKER, NO IGNITION SOURCES PRESENT ON ADMISSION. CALL LIGHT IN REACH, PT RESTING IN BED WATCHING TV.
[2023-11-12 04:12] LABS: Bun/Creatinine Ratio 19.9 (12.0-20.0); Calcium, Blood 8.4 mg/dL (8.5-10.1); Creatinine, Blood 0.55 mg/dL (0.40-1.00); Magnesium, Blood 1.8 mg/dL (1.6-2.4); Potassium, Blood 3.4 mmol/L (3.5-5.5)
--- NOTE | 2023-11-12 05:01 | NUR ---
END OF SHIFT NOTE: NO ACUTE EVENTS FOLLOWING ARRIVAL TO PCU. BP HAS CONTINUED TO TREND DOWNWARD W/ MOST RECENT SBP 140'S. HR 60-70'S, SINUS ON TELE. REMAINS ON ROOM AIR W/ EVEN, UNLABORED RESPIRATIONS. INDEPENDENTLY REPOSITIONING IN BED. RESTING IN BED AT THIS TIME W/ CALL LIGHT IN REACH. WILL REPORT TO ONCOMING RN.
[2023-11-12] MEDS ORDERED: Enoxaparin 40 MG/0.4 ML SYR SC SCH (09:00)
[2023-11-12] MEDS ORDERED: PredniSONE 5 MG Tab PO SCH (09:00)
[2023-11-12] MEDS ORDERED: Atorvastatin 10 MG Tab PO SCH (09:00)
[2023-11-12] MEDS ORDERED: Furosemide 10 MG/ML 4ML Vial IV SCH (09:00)
[2023-11-12] MEDS ORDERED: Folic Acid 1 MG TAB PO SCH (09:00)
[2023-11-12] MEDS ORDERED: HydrALAZINE HCl 20 MG / ML 1ML Vial IV PRN ×2 (09:40→11:25)
--- NOTE | 2023-11-12 11:19 | NUR ---
CHANGE IN STATUS: PATIENT UP TO THE BATHROOM TO VOID. UPON RETURNING, PATIENT REPORTED THAT SHE WASN'T FEELING WELL. CHEEKS ARE FLUSHED. PATIENT REPORTS DRY MOUTH AND BREAST HEAVINESS. PATIENT REPORTING TINGLING ALL OVER. BLOOD PRESSURE CONTINUES TO BE ELEVATED (SBP >180) EVEN POST PRN HYDRALAZINE ADMINISTRATION. NOTIFIED DR. PARISI. NEW ORDERS IMPLEMENTED. DR. PARISI AT BEDSIDE. INSTRUCTED PATIENT TO STAY IN BED FOR THE MEAN TIME. PUREWICK IN PLACE. PROVIDED WITH FRESH WATER. COOL CLOTH ON HER FORHEAD. CALL LIGHT WITHIN REACH. PATIENT'S SISTER IS AT BEDSIDE.
[2023-11-12] MEDS ORDERED: Potassium Chloride 20 MEQ/15 ML UDC PO ONE (12:00)
[2023-11-12] MEDS ORDERED: AmLODIPine Besylate 5 MG Tab PO ONE (12:00)
[2023-11-12] MEDS ORDERED: NiCARdipine HCL 50 MG in NS 250 ML IV SCH (12:05)
--- NOTE | 2023-11-12 12:43 | NUR ---
ARRIVAL TO ICU PT BROUGHT TO ICU 1 AT THIS TIME. BEDSIDE RECEIVED BY SILVA CARVAJAL. PT IS A&OX4, REPORTS FEELING FRIGHTENED AND HAVING A HEADACHE. SHE DENIES CHEST PAIN AND PRESSURE AT THIS TIME. SHE REPORTS PREVIOUSLY FEELING A HARSH PRESSURE ON HER CHEST THAT SOMEWHAT RESOLVED WITH REPOSITIONING HER RIGHT BREAST. SBP 180S. NICARDIPINE GTT STARTED AT 2.5MG/HR. SINSU ON MONITOR WITH RATE IN 60S-70S. LUNGS ARE CLEAR, DIMINISHED IN BASES. SHE DENIES SOB. ON RA WITH SPO2 >93%. BOWEL TONES ACTIVE, ABDOMEN SOFT. PUREWICK IN PLACE. SECOND PIV PLACED. FAMILY AT BEDSIDE. BED IN LOW POSITION, CALL LIGHT WITHIN REACH.
--- NOTE | 2023-11-12 12:59 | NUR ---
TRANSFER TO ICU: PATIENT CONTINUED TO FEEL POORLY (HEADACHE, BREAST/RIB PRESSURE, FLUSHED, AND GENERAL MALAISE) WITH ELEVATED BPS. NEW ORDERS FOR NICARDIPINE GTT. PATIENT TRANSFERRED TO ICU FOR ADMINISTRATION OF THIS MEDICATION. FAMILY AT BEDSIDE AND AWARE OF THE DECISION. BEDSIDE REPORT GIVEN TO OBDULIA Stover RN.
[2023-11-12] MEDS ORDERED: Acetaminophen 325 MG TABLET PO PRN (13:15)
--- NOTE | 2023-11-12 18:43 | NUR ---
SHIFT SUMMARY PT RECEIVING NICARDIPINE 10MG/HR. SHE IS A&OX4 WITH PLEASANT AFFECT. SHE DENIES SOB. SHE IS ON RA WITH SPO2 >92%. 1ST DEGREE BLOCK ON MONITOR WITH RATE IN 60S-80S. SBP 130S-140S. SHE HAS DENIED CP SINCE ARRIVAL TO ICU. HEADACHE HAS SLOWLY RESOLVED OVER THE LAST FEW HOURS. PT ATE DINNER AND TOLERATED WELL. PT ATTEMPTED TO VOID WITH PUREWICK BUT UNABLE. PT MINIMAL ASSIST WITH WALKER TO TOILET. PT ABLE TO HAVE BM AND VOID WITHOUT DIFFICULTY. PT REQUESTED PUREWICK BACK IN PLACE. BED IN LOW POSITION, BEDSIDE TABLE AND CALL LIGHT WITHIN REACH.
[2023-11-13] VITALS (45 sets, daily range): BP systolic 112–172; BP diastolic 54–93
[2023-11-13 03:49] LABS: BASOPHILS ABSOLUTE AUTO 0.05 K/mm3 (0.00-0.23); BASOPHILS PERCENT AUTO 1 % (0-2); EOSINOPHILS ABSOLUTE AUTO 0.08 K/mm3 (0.00-0.68); EOSINOPHILS PERCENT AUTO 1 % (0-6); Hematocrit 32.5 % (33.0-51.0); Hemoglobin 10.8 g/dL (11.5-16.0); IMMATURE GRAN ABSOLUTE AUTO 0.08 K/mm3 (0.00-0.10); IMMATURE GRAN PERCENT AUTO 1 % (0-1); LYMPHOCYTES ABSOLUTE AUTO 1.17 K/mm3 (0.84-5.20); LYMPHOCYTES PERCENT AUTO 11 % (21-46); MONOCYTES ABSOLUTE AUTO 1.24 K/mm3 (0.16-1.47); MONOCYTES PERCENT AUTO 12 % (4-13); Mean Corpuscular HGB 29.9 pg (26.0-34.0); Mean Corpuscular HGB Conc 33.2 g/dL (31.5-36.5); Mean Corpuscular Volume 90 fL (80-100); Mean Platelet Volume 10.4 fL (9.1-12.4); NEUTROPHILS ABSOLUTE AUTO 7.86 K/mm3 (1.96-9.15); NEUTROPHILS PERCENT AUTO 75 % (41-73); Platelet Count 357 K/mm3 (150-400); RDW Coefficient Variation 14.6 % (11.7-14.2); RDW Standard Deviation 47.5 fL (35.1-46.3); Red Blood Cell Count 3.61 M/mm3 (3.80-5.20); White Blood Cell Count 10.48 K/mm3 (4.00-11.30)
[2023-11-13 04:04] LABS: Albumin, Blood 2.2 g/dL (3.4-5.0); Anion Gap 11 mmol/L (3-11); Blood Urea Nitrogen 15 mg/dL (8-24); CO2, Blood 26 mmol/L (21-32); Chloride, Blood 104 mmol/L (98-108); Glomerular Filtration Rate 56 (60-); Glucose, Blood 114 mg/dL (70-99); Magnesium, Blood 1.7 mg/dL (1.6-2.4); Phosphorus, Blood 3.8 mg/dL (2.5-4.9); Potassium, Blood 3.7 mmol/L (3.5-5.5); Sodium, Blood 137 mmol/L (136-145)
--- NOTE | 2023-11-13 05:52 | NUR ---
PATIENT HAD A GOOD NIGHT. PATIENT IS CURRENTLY RESTING IN BED. ASSISTED TO TOLIET A COUPLE TIMES OVERNIGHT. NO COMPLAINTS OF CHEST PAIN OR PRUITT. PATIENT IS A&O X4. PATIENT IS IN NSR. OVERNIGHT WAS ABLE TO TITRATE NICARIPINE GTT OFF AT 0230. PATIENT SBP GOALIS <160. PATIENT IS ON RA-2L NC NEEDED WHILE SLEEPING. PATIENTS IS COMFORTBALE AT THIS TIME.
[2023-11-13] MEDS ORDERED: HydrALAZINE HCl 20 MG / ML 1ML Vial IV PRN (06:10)
--- NOTE | 2023-11-13 07:00 | NUR ---
ASSUMPTION OF CARE PT IS A&OX4 WITH PLEASANT AFFECT. SHE DENIES A HEADACHE THIS MORNING. SHE IS ON RA WITH SPO2 >94%. SHE DENIES SOB AT REST BUT DOES BECOME DYSPNEIC WITH EXERTION. SINUS ON MONITOR WITH RATE IN 60S. SBP 130S-150S. PT DENIES CHEST PAIN/PRESSURE. SHE STS SHE DOES HAVE SOME DISCOMFORT NEAR HER R LUNG/RIB AREA BUT BELIEVES IT IS RELATED TO HER RHEUMATOID ARTHRITIS. PT DECLINED BREAKFAST TRAY BUT DID EAT A YOGURT AND IS TOLERATING FLUIDS WELL. REPORTS HAVING GAS. PT AMBULATED TO TOILET TO VOID WITH MINIMAL ASSISTANCE. PT SAT IN CHAIR FOR AWHILE BUT THEN BECAME TIRED AND IS RESTING IN BED. BED IN LOW POSITION, BED CONTROL AND CALL LIGHT WITHIN REACH.
[2023-11-13] MEDS ORDERED: AmLODIPine Besylate 5 MG Tab PO SCH (09:00)
[2023-11-13] MEDS ORDERED: Methotrexate Sod 2.5 MG Tab PO SCH (09:00)
--- NOTE | 2023-11-13 13:25 | NUR ---
TRANSFER TO PCU PT TAKEN TO PCU 14 AT THIS TIME VIA WHEELCHAIR. PT TRANSFERRED SELF FROM CHAIR TO BED. PT'S SISTER GATHERED ALL BELONGINGS AND CARRIED OVER FOR PT. CONNOR CARVAJAL AT BEDSIDE.
--- NOTE | 2023-11-13 14:28 | NUR ---
TRANSFER TO PCU: PATIENT ABLE TO STAND AND TRANSFER TO PCU BED. DENIES PAINS AT THIS TIME. ON ROOM AIR, LUNGS SOUNDING CLEAR. SINUS WITH 1ST DEGREE HEART BLOCK. HR 60'S. SBP 140'S. DENIES CHEST PAIN/PRESSURE/PALPITATIONS. PATIENT SISTERS AT BEDSIDE. IV'S FLUSHED AND SALINE LOCKED. DENIES ABDOMINAL PAIN/NAUSEA. DRINKING CRANBERRY JUICE. CALL LIGHT IN REACH. DENIES NEEDS AT THIS TIME.
[2023-11-13] MEDS ORDERED: Furosemide 10 MG/ML 4ML Vial IV SCH ×2 (18:00→21:00)
--- NOTE | 2023-11-13 18:22 | NUR ---
SHIFT SUMMARY: NO ACUTE CHANGES. SBP 140-160. DENIES PAINS. CONTINUES ON ROOM AIR. NO CHANGES TO TELE, PT REMAINS SR 1ST DEGREE HB. BOTH SISTERS IN TO VISIT. UP TO BATHROOM WITH SBA. STRICT I/O. UP TO RECLINER FOR MEALS. DENIES NEEDS AT THIS TIME. CALL LIGHT IN REACH.
--- NOTE | 2023-11-13 20:42 | NUR ---
ASSUMPTION OF CARE AFTER RECEIVING REPORT FROM CHERRY RN, THIS RN ASSUMED CARE AT APPROX 1915. PATIENT ALERT AND ORIENTED X4. UP USING RESTROOM WITH SBA FROM STAFF WITH GB. CHANDA VANCE. MOVES ALL EXTREMITIES EQUALLY. AFEBRILE. TELEMETRY SHOWING SINUS 1ST DEGREE BLOCK 60s-70s. SBP 150s. DENIES CHEST PAIN, PRESSURE. ON ROOM AIR, SATs >90%. MILD SHORTNESS OF BREATH WITH MOBILITY THAT EASES AT REST. DENIES PAIN. CALL LIGHT IN REACH.
[2023-11-14] VITALS (22 sets, daily range): BP systolic 125–200; BP diastolic 52–88
[2023-11-14 03:54] LABS: BASOPHILS ABSOLUTE AUTO 0.06 K/mm3 (0.00-0.23); BASOPHILS PERCENT AUTO 1 % (0-2); EOSINOPHILS ABSOLUTE AUTO 0.12 K/mm3 (0.00-0.68); EOSINOPHILS PERCENT AUTO 1 % (0-6); Hematocrit 34.5 % (33.0-51.0); Hemoglobin 11.6 g/dL (11.5-16.0); IMMATURE GRAN ABSOLUTE AUTO 0.07 K/mm3 (0.00-0.10); IMMATURE GRAN PERCENT AUTO 1 % (0-1); LYMPHOCYTES ABSOLUTE AUTO 1.72 K/mm3 (0.84-5.20); LYMPHOCYTES PERCENT AUTO 15 % (21-46); MONOCYTES ABSOLUTE AUTO 1.31 K/mm3 (0.16-1.47); MONOCYTES PERCENT AUTO 11 % (4-13); Mean Corpuscular HGB Conc 33.6 g/dL (31.5-36.5); Mean Corpuscular Volume 89 fL (80-100); Mean Platelet Volume 10.4 fL (9.1-12.4); NEUTROPHILS ABSOLUTE AUTO 8.44 K/mm3 (1.96-9.15); NEUTROPHILS PERCENT AUTO 72 % (41-73); Platelet Count 377 K/mm3 (150-400); RDW Coefficient Variation 14.7 % (11.7-14.2); RDW Standard Deviation 46.8 fL (35.1-46.3); Red Blood Cell Count 3.87 M/mm3 (3.80-5.20); White Blood Cell Count 11.72 K/mm3 (4.00-11.30)
[2023-11-14 04:15] LABS: Bun/Creatinine Ratio 20.6 (12.0-20.0); Calcium, Blood 8.3 mg/dL (8.5-10.1); Creatinine, Blood 0.97 mg/dL (0.40-1.00); Potassium, Blood 3.7 mmol/L (3.5-5.5)
--- NOTE | 2023-11-14 05:05 | NUR ---
SHIFT SUMMARY NO ACUTE EVENTS SINCE ASSUMPTION OF CARE NOTE. PATIENT SLEPT T/O NIGHT, IS EASILY AROUSABLE WITH VERBAL STIMULI. TELEMETRY SHOWING SINUS KKOO WITH 1ST DEGREE BLOCK, 50s-60s. RATE INCREASE TO 60s-70s WHILE AWAKE. BP STABLE. SBP 110s-160s. SBP 180s FOLLOWING MOBILITY, SBP RETURNED TO 150s WITH REST. ASYMPTOMATIC. DENIES CHEST PAIN, PRESSURE. REMAINS ON ROOM AIR, SATs >90%. MILD SHORTNESS OF BREATH WITH MOBILITY THAT EASES AT REST. UP TO RESTROOM WITH SBA FWW. VOIDING. DID EXPERIENCE EPISODES OF URGE INCONTINENCE, CHANGING ATTENDS PRN. REPOSITIONS HERSELF INDEPENDENTLY IN BED. CALL LIGHT IN REACH. WILL CONTINUE TO MONITOR AND REPORT TO ONCOMING RN.
--- NOTE | 2023-11-14 09:34 | NUR ---
AM NOTE: PATIENT ALERT AND ORIENTED. IN RECLINER THIS AM POST BED BATH. UP TO BATHROOM WITH SBA, GAIT BELT AND FWW. DENIES PAINS. TELE SHOWING SR WITH 1ST DEGREE HB. HR 50-70'S. SBP 180'S UPON SHIFT START. MEDICATED WITH AM MEDS AND SBP NOW 130'S. PATIENT DENIES CHEST PAIN/PRESSURE/PALPITATIONS. PPP. EDEMA NOTED THROUGHOUT. IV LASIX GIVEN THIS AM AND MINIMAL OUTPUT. STRICT INTAKE AND OUTPUT. MEASURING URINE VIA HAT IN TOILET. ON ROOM AIR SATING ABOVE 95%. DENIES SOB. OCCASIONAL DRY COUGH. EVEN AND UNLABORED RESPIRATIONS AT REST. MINIMAL SOB WITH EXCERTION. BOWEL TONES PRESENT IN ALL 4 QUADRANTS. PATIENT PASSING GAS. DENIES ABDOMINAL PAIN/NAUSEA. EATING AND DRINKING. SKIN OVERALL PALE WITH SCATTERED BRUISING. REDNESS NOTED IN ABDOMINAL FOLDS WITH AM BED BATH. CLEANED AND POWDER APPLIED. CALL LIGHT IN REACH. PATIENT RESTING IN BED AT THIS TIME. DENIES NEEDS.
[2023-11-14] MEDS ORDERED: Bumetanide 0.25 MG/ML 10ML Vial IV SCH (11:45)
--- NOTE | 2023-11-14 12:25 | NUR ---
THIS RN SPOKE WITH SEPHORA OPERATIONS CONSULTANT REGARDING 300 OUTPUT SINCE AM LASIX. ORDERS FOR 2MG IV BUMEX BID STARTING NOW. ORDERS IN PLACE. WHILE THIS RN WAS WAITING FOR BUMEX TO BE VERIFIED PATIENT VOIDED ANOTHER 300 AND AFTERNOON BLOOD PRESSURE READING OF 200/88(119). SEPH[employer]A OPER[employer] CONSULTANT CALLED AND UPDATED ON ADDITIONAL OUTPUT AND BLOOD PRESSURE. BUMEX AND HYDRALAZINE GIVEN AT THIS TIME. PATIENT BACK IN BED. PUREWICK IN PLACE. PATIENT REPORTS LEGS FEELING HEAVY WITH ELEVATED BLOOD PRESSURE AND SLIGHLTY ANXIOUS. BLOOD PRESSURE CUFF SET UP TO TAKE EVERY 30 MIN. THIS RN REMAINS AT BEDSIDE.
--- NOTE | 2023-11-14 12:37 | NUR ---
BLOOD PRESSURE POST IV HYDRALAZINE AND BUMEX READING 161/69(94). PATIENT CONTINUES TO BE SYMPTOMATIC WITH LEGS FEELING HEAVY, ANXIOUS, GAS PAINS AND SLIGHTLY NAUSEOUS. THIS RN REMAINS AT BEDSIDE. COOL WASH CLOTH APPLIED TO HEAD. EVEN AND UNLABORED RESPIRTATIONS WITH SPO2 READING 95%. HR TRENDING 60-70'S.
--- NOTE | 2023-11-14 18:24 | NUR ---
PATIENT BLOOD PRESSURE 166/70(96). DR. TEAGUE AT BEDSIDE. OKAY TO GIVE PRN HYDRALAZINE. HYDRALAZINE GIVEN AND PATIENT BLOOD PRESSURE READING 133/53(74). PATIENT DENIES HIGH BLOOD PRESSURE SYMPTOMS BUT REPORTS ANXIETY WITH KNOWNING HER BLOOD PRESSURE IS HIGH. IN BED AT THIS TIME. CALL LIGHT IN REACH.
[2023-11-14] MEDS ORDERED: Carvedilol 6.25 MG Tab PO SCH (20:00)
[2023-11-14] MEDS ORDERED: Losartan Potassium 50 MG Tab PO ONE (20:00)
--- NOTE | 2023-11-14 21:05 | NUR ---
ASSUMPTION OF CARE AFTER RECEIVING REPORT FROM CHERRY RN, THIS RN ASSUMED CARE AT APPROX 1915. PATIENT AWAKE, ALERT AND ORIENTED X4. PERRLA. MOVES ALL EXTREMITIES EQUALLY WITH GENERALIZED WEAKNESS T/O - IS WORKING WITH PHYSICAL, OCCUPATIONAL THERAPY. UP TO RESTROOM WITH SBA FROM STAFF WITH NANCYWLIUDMILA. REPOSITIONS HERSELF INDEPENDENTLY IN BED. MILD UPPER EXTREMITY TREMOR NOTED - PATIENT STATES BASELINE. AFEBRILE. DENIES PAIN. TELEMETRY SHOWING SINUS W/ 1ST DEGREE BLOCK 60s-70s. BP STABLE, SBP 120s-140s. SCHEDULED PO COREG AND COZAAR ADMINISTERED PER EMAR. +2 EDEMA TO BLE - IV BUMEX ADMINISTERED PER EMAR. STRICT I/Os. ON ROOM AIR, SATs >90%. RR EVEN, UNLABORED AT REST. MILD SHORTNESS OF BREATH WITH MOBILITY THAT EASES WITH REST. CALL LIGHT IN REACH.
[2023-11-15] VITALS (7 sets, daily range): BP systolic 148–173; BP diastolic 48–84
[2023-11-15] MEDS ORDERED: ESCITALOPRAM OXA5 MG PO (00:55)
[2023-11-15 04:05] LABS: BASOPHILS ABSOLUTE AUTO 0.04 K/mm3 (0.00-0.23); BASOPHILS PERCENT AUTO 0 % (0-2); EOSINOPHILS ABSOLUTE AUTO 0.08 K/mm3 (0.00-0.68); EOSINOPHILS PERCENT AUTO 1 % (0-6); Hematocrit 32.5 % (33.0-51.0); Hemoglobin 10.7 g/dL (11.5-16.0); IMMATURE GRAN ABSOLUTE AUTO 0.06 K/mm3 (0.00-0.10); IMMATURE GRAN PERCENT AUTO 1 % (0-1); LYMPHOCYTES ABSOLUTE AUTO 1.44 K/mm3 (0.84-5.20); LYMPHOCYTES PERCENT AUTO 14 % (21-46); MONOCYTES ABSOLUTE AUTO 0.95 K/mm3 (0.16-1.47); MONOCYTES PERCENT AUTO 10 % (4-13); Mean Corpuscular HGB 29.4 pg (26.0-34.0); Mean Corpuscular HGB Conc 32.9 g/dL (31.5-36.5); Mean Corpuscular Volume 89 fL (80-100); Mean Platelet Volume 10.8 fL (9.1-12.4); NEUTROPHILS ABSOLUTE AUTO 7.41 K/mm3 (1.96-9.15); NEUTROPHILS PERCENT AUTO 74 % (41-73); Platelet Count 359 K/mm3 (150-400); RDW Coefficient Variation 14.7 % (11.7-14.2); RDW Standard Deviation 47.8 fL (35.1-46.3); Red Blood Cell Count 3.64 M/mm3 (3.80-5.20); White Blood Cell Count 9.98 K/mm3 (4.00-11.30)
--- NOTE | 2023-11-15 04:33 | NUR ---
SHIFT SUMMARY NO ACUTE EVENTS SINCE ASSUMPTION OF CARE NOTE. PATIENT SLEPT T/O NIGHT, EASILY AROUSABLE WITH VERBAL STIMULI. AFEBRILE. DENIES PAIN T/O. TELEMETRY SHOWING SINUS KOKO WITH 1ST DEGREE BLOCK 50s-60s. BP STABLE, SBP 120s-150s T/O. DENIES CHEST PAIN, PRESSURE. REMAINS ON ROOM AIR, SATs >92%. CONTINUED MILD SHORTNESS OF BREATH WITH MOBILITY. UP TO RESTROOM WITH SBA FWW TO VOID. REPOSITIONING HERSELF INDEPENDENTLY IN BED. CALL LIGHT IN REACH. WILL CONTINUE TO MONITOR AND REPORT TO ONCOMING RN.
[2023-11-15 04:47] LABS: Bun/Creatinine Ratio 24.4 (12.0-20.0); Calcium, Blood 8.2 mg/dL (8.5-10.1); Creatinine, Blood 1.19 mg/dL (0.40-1.00); Potassium, Blood 3.6 mmol/L (3.5-5.5)
[2023-11-15] MEDS ORDERED: Irbesartan 150 MG Tab PO SCH ×2 (08:00→19:00)
[2023-11-15] MEDS ORDERED: Potassium Chloride 20 MEQ TabCR PO SCH (17:00)
--- NOTE | 2023-11-15 18:17 | NUR ---
PT SUMMARY; NO AUCTE CHANGE FOR THE SHIFT BLOOD PRESSURE WAS 140-160'S T/O SHIFT THEN TRENDED UP TO 170-180'S, MADE SOME BP MED CHANGES INCLUDING HYDRALAZINE PO BID. NO CHEST PAIN/PRESSURE NO SOB WITH EXERTION. PT HAS BEEN AMBULATING VIA WALKER WAS ABLE TO SHOWER THIS AFERNOON, ALSO ABLE TO WORK WITH PT. HRR REMAINED SR 60'S WITH FIRST DEGREE HB, SATS ABOVE 95% ON RA, AFEBRILE. PT TRANSITIONED TO MEDICAL STATUS WITH TELE. DR DISLA CAME BY TO SEE PT TODAY NO NEW ORDERS AT THIS TIME. PT HAS BEEN UP IN THE CHAIR FOR MEALS, ABLE TO MAKE NEEDS KNOWN, WILL REPORT TO ONCOMING SHIFT
[2023-11-15] MEDS ORDERED: Carvedilol 25 MG Tab PO SCH (19:00)
[2023-11-15] MEDS ORDERED: Magnesium Oxide 400 MG Tab PO SCH (21:00)
[2023-11-15] MEDS ORDERED: HydrALAZINE HCl 25 MG Tab PO SCH (21:00)
--- NOTE | 2023-11-15 22:55 | NUR ---
ASSUMPTION OF CARE AFTER RECEIVING REPORT FROM YANNA RN, THIS RN ASSUMED CARE AT APPROX 1915. PATIENT ALERT AND ORIENTED X4. WATCHING TV IN BED. COMMUNICATES NEEDS EFFECTIVELY. MOVES ALL EXTREMITIES EQUALLY WITH GENERALIZED WEAKNESS T/O. UP TO RESTROOM WITH SBA FWW. TELEMETRY SHOWING SINUS WITH FIRST DEGREE BLOCK 60s-70s. BP STABLE, SBP 130s-150s. DENIES CHEST PAIN, PRESSURE. SCHEDULED HTN MEDICATIONS ADMINISTERED PER EMAR. ON ROOM AIR, SATs >90%. RR EVEN, UNLABORED AT REST. MILD SHORTNESS OF BREATH WITH MOBLITY. CALL LIGHT IN REACH.
[2023-11-16] VITALS (7 sets, daily range): BP systolic 144–175; BP diastolic 51–68
[2023-11-16 04:53] LABS: BASOPHILS ABSOLUTE AUTO 0.04 K/mm3 (0.00-0.23); BASOPHILS PERCENT AUTO 0 % (0-2); EOSINOPHILS PERCENT AUTO 1 % (0-6); Hematocrit 34.4 % (33.0-51.0); Hemoglobin 11.5 g/dL (11.5-16.0); IMMATURE GRAN ABSOLUTE AUTO 0.05 K/mm3 (0.00-0.10); IMMATURE GRAN PERCENT AUTO 1 % (0-1); LYMPHOCYTES ABSOLUTE AUTO 1.69 K/mm3 (0.84-5.20); LYMPHOCYTES PERCENT AUTO 16 % (21-46); MONOCYTES ABSOLUTE AUTO 0.97 K/mm3 (0.16-1.47); MONOCYTES PERCENT AUTO 9 % (4-13); Mean Corpuscular HGB 29.7 pg (26.0-34.0); Mean Corpuscular HGB Conc 33.4 g/dL (31.5-36.5); Mean Corpuscular Volume 89 fL (80-100); Mean Platelet Volume 11.3 fL (9.1-12.4); NEUTROPHILS ABSOLUTE AUTO 7.95 K/mm3 (1.96-9.15); NEUTROPHILS PERCENT AUTO 74 % (41-73); Platelet Count 371 K/mm3 (150-400); RDW Coefficient Variation 14.6 % (11.7-14.2); RDW Standard Deviation 47.6 fL (35.1-46.3); Red Blood Cell Count 3.87 M/mm3 (3.80-5.20)
[2023-11-16 05:08] LABS: Albumin, Blood 2.7 g/dL (3.4-5.0); Albumin/Globulin Ratio 0.8 (0.8-1.8); Bilirubin, Total 0.8 mg/dL (0.1-1.0); Bun/Creatinine Ratio 42.5 (12.0-20.0); Calcium, Blood 8.5 mg/dL (8.5-10.1); Creatinine, Blood 0.75 mg/dL (0.40-1.00); Globulin, Blood 3.4 g/dL (2.2-4.0); Potassium, Blood 3.8 mmol/L (3.5-5.5); Total Protein, Blood 6.1 g/dL (6.4-8.2)
--- NOTE | 2023-11-16 05:54 | NUR ---
SHIFT SUMMARY SEE ASSUMPTION OF CARE NOTE. PATIENT SLEPT T/O NIGHT, EASILY AROUSABLE WITH VERBAL STIMULI. UP TO RESTROOM WITH SBA FWW. VOIDING. MEDICATED PER EMAR WITH PO TYLENOL FOR 6/10 BACK PAIN. PAIN IMPROVED SINCE ADMINISTRATION. TELEMETRY SHOWING SINUS WITH FIRST DEGREE BLOCK 50s-60s. BP ELEVATED THIS MORNING, SBP 160s-170s. X1 DOSE OF IV HYDRALAZINE ADMINISTERED PER EMAR. CURRENT SBP 140s. DENIES CHEST PAIN, PRESSURE. REMAINS ON ROOM AIR, SATs >90%. RR EVEN, UNLABORED AT REST. MILD SHORTNESS OF BREATH WITH MOBILITY. CALL LIGHT IN REACH. WILL CONTINUE TO MONITOR AND REPORT TO ONCOMING RN.
--- NOTE | 2023-11-16 18:30 | NUR ---
END OF SHIFT SUMMARY: PT MED TELE STATUS AND A&OX4 TO ALL. OXYGEN SATURATION STABLE AND TRENDING >92% ON ROOM AIR. ON TELE SHOWING SINUS RYTHM WITH A FIRST DEGREE BLOCK WITH RATE IN 60'S WITH A MURMUR PRESENT.PT BLOOD PRESSURE ELEVATED TODAY AROUND 1600 INTO THE 170'S AND WAS TREATED PER EMAR. X RAY OPERATOR NIGHAT NOTIFIED AND ADJUSTED MEDICATIONS PER EMAR. PT BUMEX INCREASED TO 3MG BID. PT HAD MINIMIAL OUTPUT TODAY MEASURING 600ML'S TOTAL, PT BLADDER SCANNED AND ONLY MEASURED 106ML'S BEFORE END OF SHIFT. PT ALSO PLACED ON FLUID RESTRICTION OF 1500ML'S. PT WAS EDUCATED, 1000ML'S FOR DAY AND 500ML'S FOR NIGHT.PT DENIED ANY CHEST PAIN/PRESSURE OR SOB WHEN BLOOD PRESSURE READINGS WERE INCREASED. PATIENT REPORTED GETTING SHORT OF BREATH WITH EXERTION WHEN AMBULATING WITH FRONT WHEELED WALKER TO THE BATHROOM. WILL REPORT TO THE ONCOMING SHIFT.
[2023-11-16] MEDS ORDERED: Bumetanide 0.25 MG/ML 4ML ViaL IV SCH (19:00)
[2023-11-16] MEDS ORDERED: NIFEdipine 60 MG TabCR PO SCH (20:00)
[2023-11-17] VITALS (8 sets, daily range): BP systolic 120–155; BP diastolic 48–61
--- NOTE | 2023-11-17 02:00 | NUR ---
ARRIVAL TO UNIT PT TRANSFERRED TO UNIT FROM FROM PCU. PT ARRIVED VIA WHEELCHAIR. PT A&O x4. TOLERATING ORALS. ALL PERSONAL BELONINGS WITH PATIENT. VSS; SAT >90% ON RA, TELE - SINUS KOKO @ 55 c 1ST DEGREE HEART BLOCK. MIN DYSPNEA c EXERTION ON TRANSFER. PT AMB TO BED IND c FWW. 2+ EDEMA ASSESSED ON BILAT LOWER EXTREMITIES. NO PT COMPLAINTS OF PAIN AT THIS TIME. PT STATES NO NEEDS AT THIS TIME. HOB ELEVATED, CALL LIGHT IN REACH, BED IN LOWEST POSITION, ORIENTED TO UNIT.
[2023-11-17 04:37] LABS: BASOPHILS ABSOLUTE AUTO 0.05 K/mm3 (0.00-0.23); BASOPHILS PERCENT AUTO 0 % (0-2); EOSINOPHILS PERCENT AUTO 1 % (0-6); Hematocrit 31.3 % (33.0-51.0); Hemoglobin 10.4 g/dL (11.5-16.0); IMMATURE GRAN ABSOLUTE AUTO 0.07 K/mm3 (0.00-0.10); IMMATURE GRAN PERCENT AUTO 1 % (0-1); LYMPHOCYTES ABSOLUTE AUTO 1.36 K/mm3 (0.84-5.20); LYMPHOCYTES PERCENT AUTO 12 % (21-46); MONOCYTES ABSOLUTE AUTO 0.99 K/mm3 (0.16-1.47); MONOCYTES PERCENT AUTO 9 % (4-13); Mean Corpuscular HGB 29.7 pg (26.0-34.0); Mean Corpuscular HGB Conc 33.2 g/dL (31.5-36.5); Mean Corpuscular Volume 89 fL (80-100); Mean Platelet Volume 10.6 fL (9.1-12.4); NEUTROPHILS PERCENT AUTO 77 % (41-73); Platelet Count 313 K/mm3 (150-400); RDW Coefficient Variation 14.6 % (11.7-14.2); RDW Standard Deviation 47.3 fL (35.1-46.3); White Blood Cell Count 11.37 K/mm3 (4.00-11.30)
[2023-11-17 04:57] LABS: Albumin, Blood 2.5 g/dL (3.4-5.0); Albumin/Globulin Ratio 0.8 (0.8-1.8); Bilirubin, Total 0.6 mg/dL (0.1-1.0); Bun/Creatinine Ratio 38.3 (12.0-20.0); Calcium, Blood 8.5 mg/dL (8.5-10.1); Creatinine, Blood 0.97 mg/dL (0.40-1.00); Globulin, Blood 3.1 g/dL (2.2-4.0); Potassium, Blood 4.2 mmol/L (3.5-5.5); Total Protein, Blood 5.6 g/dL (6.4-8.2)
--- NOTE | 2023-11-17 06:20 | NUR ---
SHIFT SUMMARY S/P ACUTE ON CHRONIC HF c CHF EXACERBATION. NO ACUTE CHANGES OVERNIGHT. VSS, TELE - SINUS KOKO c 1ST DEGREE HEART BLOCK. TOLERATING ORALS, FLUID RESTRICTION OF 1.5L/DAY. VOIDING. AMBULATES USING FWW c SBA. PT SLEPT WELL OVERNIGHT. ANTICIPATED D/C LATER TODAY. CALL LIGHT IN REACH, BED IN LOWEST POSITION, WILL REPORT TO DAY RN.
[2023-11-17] MEDS ORDERED: Bumetanide 1 MG Tab PO SCH ×2 (09:00→18:00)
[2023-11-17] MEDS ORDERED: CARV25 PO (13:35)
[2023-11-17] MEDS ORDERED: HYDRA25 PO (13:36)
[2023-11-17] MEDS ORDERED: POTA10T PO (13:37)
[2023-11-17] MEDS ORDERED: MAGNESIUM OXID500 MG PO (13:37)
[2023-11-17] MEDS ORDERED: BUME1 PO (13:47)
--- NOTE | 2023-11-17 16:20 | NUR ---
SHIFT SUMMARY PT WAS TO DC THIS SHIFT. PT UP TO CHAIR AND "DIDN'T FEEL WELL" VS OBTAINED. SYSTOLIC BP 100. MD NOTIFIED, ORDER FOR ORTHOSTATIC BP ALL WNL. PT STATES SHE WOULD FEEL MORE COMFORTABLE STAYING ONE MORE NIGHT TO BE MONITORED DUE TO CHANGES IN MEDICATION . MD NOTIFED. PT TO DC HOME IN MORNING
--- NOTE | 2023-11-17 16:28 | NUR ---
CARE ASSUMED OF PT. PT RESTING IN BED, CALL LIGHT WITHIN REACH. PT REPORTS FEELING COLD, SHE IS BUNDLED IN BLANKETS.
--- NOTE | 2023-11-17 19:20 | NUR ---
SHIFT SUMMARY DR. MIRANDA NOTIFIED OF BP OF 125/48 AND HR OF 57. COREG WAS HELD PER DR. MIRANDA AND PARAMETERS ON PT'S BP MEDICATIONS WERE UPDATED. EVENING BUMEX WAS GIVEN PER DR. MIRANDA AND HE WAS NOTIFIED THAT PT HAS ONLY HAD 2 SMALL UNMEASURED VOIDS THIS SHIFT. NO OTHER CHANGES TO REPORT SINCE CARE WAS ASSUMED OF THIS PATIENT.
--- NOTE | 2023-11-17 19:34 | NUR ---
BEDSIDE REPORT GIVEN TO ANTONINA CARVAJAL
[2023-11-17] MEDS ORDERED: NIFEdipine 60 MG TabCR PO SCH ×2 (21:00)
[2023-11-17] MEDS ORDERED: Irbesartan 150 MG Tab PO SCH (21:00)
[2023-11-17] MEDS ORDERED: HydrALAZINE HCl 25 MG Tab PO SCH (21:00)
[2023-11-18 04:45] VITALS: BP 132/51
[2023-11-18 05:11] LABS: Hematocrit 31.2 % (33.0-51.0); Hemoglobin 10.4 g/dL (11.5-16.0); Mean Corpuscular HGB 29.8 pg (26.0-34.0); Mean Corpuscular HGB Conc 33.3 g/dL (31.5-36.5); Mean Corpuscular Volume 89 fL (80-100); Platelet Count 317 K/mm3 (150-400); RDW Coefficient Variation 14.7 % (11.7-14.2); Red Blood Cell Count 3.49 M/mm3 (3.80-5.20)
[2023-11-18 05:30] LABS: Albumin, Blood 2.4 g/dL (3.4-5.0); Albumin/Globulin Ratio 0.8 (0.8-1.8); Bilirubin, Total 0.5 mg/dL (0.1-1.0); Bun/Creatinine Ratio 40.5 (12.0-20.0); Calcium, Blood 8.5 mg/dL (8.5-10.1); Creatinine, Blood 0.99 mg/dL (0.40-1.00); Globulin, Blood 3.1 g/dL (2.2-4.0); Potassium, Blood 4.4 mmol/L (3.5-5.5); Total Protein, Blood 5.5 g/dL (6.4-8.2)
[2023-11-18 07:20] VITALS: BP 141/53
--- NOTE | 2023-11-18 07:31 | NUR ---
SHIFT SUMMARY NOC. PT ADMIT FOR CHF AND HTN. PT BP ELEVATED THIS SHIFT AND PT RECEIVED ORALS FOR HTN. PT DENIES SOB OR CP. DENIES DIZZINESS WITH AMBULATION, SBA WITH WALKER, AND GAIT BELT. PT TOLERATING PO AND VOIDING URINE. PT ON FLUID RESTRICTION OF 1500ML. RECEIVED DC ORDER FOR TELEMETRY THIS SHIFT. PT RESTED WITH EYES CLOSED AND CALL LIGHT IN REACH.
[2023-11-18 12:31] VITALS: BP 130/54
[2023-11-18] MEDS ORDERED: NIFE60ER PO (12:47)
--- NOTE | 2023-11-18 12:59 | NUR ---
DISCHARGE PROVIDED WRITTEN AND VERBAL DISCHARGE INSTRUCTIONS, PT REPORTED UNDERSTANDING. MEDICATION PRESCRIPTIONS FAXED TO [facility] PER PT REQUEST. VSS PRIOR TO DISCHARGE. PT ASSISTED OUT IN W/C.
== END 2023-11-18 12:55 | disposition home or self-care (01) | DRG 291 ==
LOC: ER 15:55 → PCU 15:56 → ER 22:06 → PCU 22:17 → ICUE 11-12 12:44 → PCU 11-12 13:49 → ICUE 11-12 19:14 → PCU 11-13 13:37 → SURS 11-17 02:22
PROVIDERS: Family Medicine; Family Medicine Adult Medicine; Internal Medicine; Nurse Practitioner Acute Care; Physician Assistant; ADMIT Family Medicine
DX: I11.0 Hypertensive heart disease with heart failure (principal); I50.33 Acute on chronic diastolic (congestive) heart failure; I16.1 Hypertensive emergency; Z68.42 Body mass index [BMI] 45.0-49.9, adult; E87.1 Hypo-osmolality and hyponatremia; M06.9 Rheumatoid arthritis, unspecified; M31.6 Other giant cell arteritis; I16.0 Hypertensive urgency; E78.5 Hyperlipidemia, unspecified; I35.0 Nonrheumatic aortic (valve) stenosis; Z88.5 Allergy status to narcotic agent; Z88.8 Allergy status to other drugs, medicaments and biological substances; Z79.899 Other long term (current) drug therapy; Z90.49 Acquired absence of other specified parts of digestive tract; Z90.710 Acquired absence of both cervix and uterus; Z98.890 Other specified postprocedural states
CPT/HCPCS: 0241U; 36415; 71046; 80048; 80053; 80069; 83735; 83880; 84443; 84484; 85025; 85027; 93005; 93010; 93306; 96365; 96374; 96375; 96376; 97110; 97116; 97162; 99285-25; A9270; G0378; J0360; J1650; J1940; J2405; J7050; J7512; J8610

== ENCOUNTER → 2023-11-23 | Outpatient (CLI) | payer MEDICARE ==
[~2023-11-23] MED LIST changes: +BUME1 PO; +CARV25 PO; +ESCITALOPRAM OXA5 MG PO; +HYDRA25 PO; +MAGNESIUM OXID500 MG PO; +METO50ER PO; +NIFE60ER PO; +POTA10T PO
[2023-11-23 11:07] LABS: BASOPHILS ABSOLUTE AUTO 0.06 K/mm3 (0.00-0.23); BASOPHILS PERCENT AUTO 1 % (0-2); EOSINOPHILS ABSOLUTE AUTO 0.07 K/mm3 (0.00-0.68); EOSINOPHILS PERCENT AUTO 1 % (0-6); Hematocrit 35.9 % (33.0-51.0); IMMATURE GRAN PERCENT AUTO 1 % (0-1); LYMPHOCYTES ABSOLUTE AUTO 1.02 K/mm3 (0.84-5.20); LYMPHOCYTES PERCENT AUTO 8 % (21-46); MONOCYTES ABSOLUTE AUTO 0.67 K/mm3 (0.16-1.47); MONOCYTES PERCENT AUTO 5 % (4-13); Mean Corpuscular HGB 29.9 pg (26.0-34.0); Mean Corpuscular HGB Conc 33.4 g/dL (31.5-36.5); Mean Corpuscular Volume 89 fL (80-100); Mean Platelet Volume 10.9 fL (9.1-12.4); NEUTROPHILS ABSOLUTE AUTO 10.97 K/mm3 (1.96-9.15); NEUTROPHILS PERCENT AUTO 85 % (41-73); Platelet Count 386 K/mm3 (150-400); RDW Coefficient Variation 14.5 % (11.7-14.2); RDW Standard Deviation 46.5 fL (35.1-46.3); Red Blood Cell Count 4.02 M/mm3 (3.80-5.20); White Blood Cell Count 12.89 K/mm3 (4.00-11.30)
[2023-11-23 11:14] LABS: Creatinine, Blood 1.22 mg/dL (0.40-1.00); Potassium, Blood 4.2 mmol/L (3.5-5.5)
== END | disposition home or self-care (01) ==
LOC: LAB 11:01 → LAB SHORT 11:01
PROVIDERS: Family Medicine
DX: R03.1 Nonspecific low blood-pressure reading (principal)
CPT/HCPCS: 80048; 83880; 84484; 85025

== ENCOUNTER → 2023-12-11 | Outpatient (CLI) | payer MEDICARE ==
[~2023-12-11] MED LIST changes: +ESCI10 PO; +HYDRA50 PO; +VITAMIN D310 MC4 PO
[2023-12-11 13:30] LABS: BASOPHILS ABSOLUTE AUTO 0.03 K/mm3 (0.00-0.23); BASOPHILS PERCENT AUTO 0 % (0-2); EOSINOPHILS ABSOLUTE AUTO 0.01 K/mm3 (0.00-0.68); EOSINOPHILS PERCENT AUTO 0 % (0-6); Hematocrit 32.8 % (33.0-51.0); Hemoglobin 11.2 g/dL (11.5-16.0); IMMATURE GRAN ABSOLUTE AUTO 0.25 K/mm3 (0.00-0.10); IMMATURE GRAN PERCENT AUTO 1 % (0-1); LYMPHOCYTES ABSOLUTE AUTO 1.01 K/mm3 (0.84-5.20); LYMPHOCYTES PERCENT AUTO 5 % (21-46); MONOCYTES ABSOLUTE AUTO 1.31 K/mm3 (0.16-1.47); MONOCYTES PERCENT AUTO 7 % (4-13); Mean Corpuscular HGB 29.8 pg (26.0-34.0); Mean Corpuscular HGB Conc 34.1 g/dL (31.5-36.5); Mean Corpuscular Volume 87 fL (80-100); Mean Platelet Volume 11.1 fL (9.1-12.4); NEUTROPHILS ABSOLUTE AUTO 17.04 K/mm3 (1.96-9.15); NEUTROPHILS PERCENT AUTO 87 % (41-73); Platelet Count 339 K/mm3 (150-400); RDW Coefficient Variation 14.7 % (11.7-14.2); RDW Standard Deviation 46.6 fL (35.1-46.3); Red Blood Cell Count 3.76 M/mm3 (3.80-5.20); White Blood Cell Count 19.65 K/mm3 (4.00-11.30)
[2023-12-11 13:48] LABS: Albumin, Blood 2.6 g/dL (3.4-5.0); Albumin/Globulin Ratio 0.7 (0.8-1.8); Bilirubin, Total 0.6 mg/dL (0.1-1.0); Bun/Creatinine Ratio 25.4 (12.0-20.0); Calcium, Blood 9.3 mg/dL (8.5-10.1); Creatinine, Blood 1.22 mg/dL (0.40-1.00); Globulin, Blood 3.9 g/dL (2.2-4.0); Potassium, Blood 5.4 mmol/L (3.5-5.5); Total Protein, Blood 6.5 g/dL (6.4-8.2)
== END ==
LOC: LAB SHORT 13:25 → LAB 13:25
PROVIDERS: Physician Assistant
DX: I50.9 Heart failure, unspecified (principal)
CPT/HCPCS: 80053; 83880; 84484; 85025

== ENCOUNTER 2023-12-12 09:41 | Inpatient (IN) | payer MEDICARE ==
[~2023-12-12] VITALS: Ht 134.6 cm; Wt 106.3 kg
[~2023-12-12 09:41] MED LIST changes: -ESCI10 PO; -HYDRA50 PO; -VITAMIN D310 MC4 PO
[2023-12-12 10:41] LABS: BASOPHILS ABSOLUTE AUTO 0.05 K/mm3 (0.00-0.23); BASOPHILS PERCENT AUTO 0 % (0-2); EOSINOPHILS ABSOLUTE AUTO 0.04 K/mm3 (0.00-0.68); EOSINOPHILS PERCENT AUTO 0 % (0-6); Hematocrit 31.4 % (33.0-51.0); Hemoglobin 10.7 g/dL (11.5-16.0); IMMATURE GRAN ABSOLUTE AUTO 0.18 K/mm3 (0.00-0.10); IMMATURE GRAN PERCENT AUTO 1 % (0-1); LYMPHOCYTES PERCENT AUTO 4 % (21-46); MONOCYTES ABSOLUTE AUTO 1.01 K/mm3 (0.16-1.47); MONOCYTES PERCENT AUTO 5 % (4-13); Mean Corpuscular HGB 29.4 pg (26.0-34.0); Mean Corpuscular HGB Conc 34.1 g/dL (31.5-36.5); Mean Corpuscular Volume 86 fL (80-100); NEUTROPHILS ABSOLUTE AUTO 17.05 K/mm3 (1.96-9.15); NEUTROPHILS PERCENT AUTO 90 % (41-73); Platelet Count 384 K/mm3 (150-400); RDW Coefficient Variation 14.6 % (11.7-14.2); RDW Standard Deviation 45.8 fL (35.1-46.3); Red Blood Cell Count 3.64 M/mm3 (3.80-5.20); White Blood Cell Count 19.03 K/mm3 (4.00-11.30)
[2023-12-12] MEDS ORDERED: ESCI10 PO (10:54)
[2023-12-12 11:22] LABS: International Normalized Ratio 1.06; Prothrombin Time Results 11.3 Sec (9.7-11.5)
[2023-12-12 11:24] LABS: Albumin, Blood 2.5 g/dL (3.4-5.0); Albumin/Globulin Ratio 0.7 (0.8-1.8); Bilirubin, Total 0.5 mg/dL (0.1-1.0); Bun/Creatinine Ratio 28.7 (12.0-20.0); Calcium, Blood 9.4 mg/dL (8.5-10.1); Creatinine, Blood 1.36 mg/dL (0.40-1.00); Globulin, Blood 3.6 g/dL (2.2-4.0); Potassium, Blood 5.3 mmol/L (3.5-5.5); Total Protein, Blood 6.1 g/dL (6.4-8.2)
[2023-12-12 11:56] LABS: Free Thyroxine 1.4 ng/dL (0.70-1.60); Thyroid Stimulating Hormone 2.26 uIU/mL (0.360-4.800)
[2023-12-12] MEDS ORDERED: FLU VACC TS2024-25(6MOS UP)/PF 45 MCG/0.5 ML SYRINGE IM ONE (13:25)
[2023-12-12 14:01] LABS: Source, Urine Clean Catch
[2023-12-12 14:13] VITALS: BP 144/123
[2023-12-12] MEDS ORDERED: FOLI1 PO (14:33)
[2023-12-12] MEDS ORDERED: VITAMIN D310 MC4 PO (14:38)
[2023-12-12 15:02] LABS: Appearance, Urine Clear (Clear); Bilirubin, Urine Neg (Neg); Blood, Urine 4+ (Neg); Color, Urine Yellow (P-Yellow); Glucose Qualitative, Urine Neg (Neg); Ketones, Urine Neg (Neg); Leukocyte Esterase, Urine Neg (Neg); Nitrite, Urine Neg (Neg); Protein, Urine 2+ (Neg); Urobilinogen, Urine NORM (Normal)
[2023-12-12] MEDS ORDERED: FLU VACC TS2024-25(6MOS UP)/PF 45 MCG/0.5 ML SYRINGE IM PRN (15:20)
[2023-12-12 15:41] LABS: Amorphous Light (0-Heavy); Bacteria Many /hpf; Squamous Epithelial Cells Mod /hpf (Few); White Blood Cells, Urine 0-2 /hpf (0-5)
[2023-12-12 15:46] VITALS: BP 151/70
[2023-12-12] MEDS ORDERED: HydrALAZINE HCl 25 MG Tab PO PRN (16:15)
[2023-12-12] MEDS ORDERED: CefTRIAXone Sodium 2,000 MG in NS 100 ML IV SCH (16:30)
[2023-12-12] MEDS ORDERED: NS 1,000 ML IV ONE (17:00)
--- NOTE | 2023-12-12 17:18 | NUR ---
THE PT IS A NEW ADMITT THIS AFTERNOON. REPORT RECIEVED FROM KEYON CARVAJAL PT IS A&OX4, CALLS APPROPRAITELY, AND IS BR D/T SYMPTOMATIC BRADYCARDIA AND NEAR SYNCOPAL EPISODE IN THE ER. AT BASELINE THE PT REPORTS BEING IND W/ A FWW. WHEN ARRIVING TO PCU HER HR WAS 40'S-50'S ON TELE. THE PT IS NOW SUSTAINING HR IN THE 50'S. SHE IS HYPERTENSIVE. DR. LIEBERMAN ADDED HYDRALIZINE 25MG PO Q6P FOR SBP >160. DR. LIEBERMAN DOES NOT WANT THE PT TO CONTINUE TAKING CARVEDILOL BUT IS FINE WITH THE NICARDIPINE. THE PT'S NA WAS LOW ON ADMISSION AND DR. LIEBERMAN ORDERED 1L BAG OF NS INFUSING AT A RATE OF 75ML/HR. HE WOULD LIKE TO DO A RECHECK OF NA ONCE THE INFUSION IS COMPLETE.SHE WAS HAVING CHILLS, AND FEELING VERY WEAK WHEN SHE CAME TO THE ROOM. THE PT STATES SHE IS PHYSICALLY FEELING BETTER THEN WHEN SHE CAME IN TO THE ER, BUT SHE STILL FEELS WEAK. FAMILY WAS AT THE BEDSIDE AND WAS ASKING JOANA LIEBERMAN QUESTIONS ABOUT THE PT'S CURRENT ADMISSION AND RECENT ADMISSION IN OCTOBER. THE PT WAS REFERED TO CARDIOLOGY OUTPT D/T SEVERE AORTIC STENOSIS AND NEEDS A VALVE REPLACEMENT. DR. LIEBERMAN STATED HE WAS GOING TO MAKE SOME CALLS AND SEE IF ANYTHING CAN BE EXPEDITED. ALSO, THE PT'S UA CAME BACK POSTIVE AND WAS STARTED ON ROCEPHIN FOR INFECTION. HER BED IS IN LOW AND CALL LIGHT IS IN REACH. SEE NOTES FOR ANY UPDATES.
[2023-12-12 20:40] VITALS: BP 148/76
[2023-12-12] MEDS ORDERED: Magnesium Oxide 400 MG Tab PO SCH (21:00)
[2023-12-12] MEDS ORDERED: NIFEdipine 60 MG TabCR PO SCH (21:00)
[2023-12-13] VITALS: BP 165/61
--- NOTE | 2023-12-13 00:15 | NUR ---
PT MEDICATED WITH PO HYDRALAZINE FOR HTN PER PARAMETERS. PT ASYMPTOMATIC AND HAS NO OTHER COMPLAINTS AT THIS TIME.
[2023-12-13 04:01] LABS: BASOPHILS ABSOLUTE AUTO 0.04 K/mm3 (0.00-0.23); BASOPHILS PERCENT AUTO 0 % (0-2); EOSINOPHILS ABSOLUTE AUTO 0.09 K/mm3 (0.00-0.68); EOSINOPHILS PERCENT AUTO 1 % (0-6); Hematocrit 30.2 % (33.0-51.0); Hemoglobin 10.5 g/dL (11.5-16.0); IMMATURE GRAN ABSOLUTE AUTO 0.08 K/mm3 (0.00-0.10); IMMATURE GRAN PERCENT AUTO 1 % (0-1); LYMPHOCYTES ABSOLUTE AUTO 0.96 K/mm3 (0.84-5.20); LYMPHOCYTES PERCENT AUTO 8 % (21-46); MONOCYTES ABSOLUTE AUTO 0.42 K/mm3 (0.16-1.47); MONOCYTES PERCENT AUTO 3 % (4-13); Mean Corpuscular HGB 29.7 pg (26.0-34.0); Mean Corpuscular HGB Conc 34.8 g/dL (31.5-36.5); Mean Corpuscular Volume 86 fL (80-100); Mean Platelet Volume 10.9 fL (9.1-12.4); NEUTROPHILS PERCENT AUTO 87 % (41-73); Platelet Count 361 K/mm3 (150-400); RDW Coefficient Variation 14.5 % (11.7-14.2); RDW Standard Deviation 44.8 fL (35.1-46.3); Red Blood Cell Count 3.53 M/mm3 (3.80-5.20); White Blood Cell Count 12.39 K/mm3 (4.00-11.30)
[2023-12-13 04:06] VITALS: BP 147/63
[2023-12-13 04:17] LABS: Bun/Creatinine Ratio 41.7 (12.0-20.0); Calcium, Blood 8.8 mg/dL (8.5-10.1); Creatinine, Blood 0.79 mg/dL (0.40-1.00); Potassium, Blood 4.5 mmol/L (3.5-5.5)
--- NOTE | 2023-12-13 06:35 | NUR ---
PT HR CONTINUED TO IMPROVE INTO THE 60s. PT REMAINED ON BEDREST WITH PUREWICK IN PLACE WITH GOOD URINE OUTPUT. IVF CONTINUES TO INFUSE W/O PROBLEM. PT DID HAVE ELEVATED BP GREATER THAN 160 SYSTOLIC AND WAS MEDICATED WITH PO HYDRALAZINE AND FOLLOW UP WAS WNL. VITAL SIGNS OTHERWISE WNL.
[2023-12-13 08:24] VITALS: BP 153/60
[2023-12-13] MEDS ORDERED: Losartan Potassium 50 MG Tab PO SCH (09:00)
[2023-12-13] MEDS ORDERED: Atorvastatin 10 MG Tab PO SCH (09:00)
[2023-12-13] MEDS ORDERED: Heparin Sodium,Porcine 5,000 UNIT/0.5 ML SDV SC SCH (09:00)
[2023-12-13] MEDS ORDERED: Citalopram Hydrobromide 10 MG TAB PO SCH (09:00)
[2023-12-13] MEDS ORDERED: PredniSONE 5 MG Tab PO SCH (09:00)
[2023-12-13 11:50] VITALS: BP 140/64
[2023-12-13 14:11] VITALS: BP 124/42
--- NOTE | 2023-12-13 14:22 | NUR ---
TRANSFER TO 331 FROM PCU PT TRANSFERED TO ROOM 331 FROM PCU7. ORIENTED TO ROOM. FAMILY AT BEDSIDE. VS REVIEWED. 2RN SKIN CHECK COMPLETED WITH JESÚS CASTLE RN. BRUISING TO BUE-SCATTERED & REDNESS TO HEELS NOTED. PILLOWS PLACED UNDER HEELS TO HELP FLOAT THEM. CALL LIGHT IN REACH
[2023-12-13] MEDS ORDERED: NS 250 ML IV PRN (14:30)
--- NOTE | 2023-12-13 14:44 | NUR ---
Spiritual care visit conducted. Patient is lying bed and alert. She tells me about her 45 yr career working for [employer], what it was like to work for [employer] and the turmoil of moving over to a new building. She talks about her supportive family that lives close to her and about her Bahai Christianity beliefs. I provided therapeutic listening, gentle funeral planning counselor and prayer. Patient responded well and showed signs of an elevated mood. I will continue to remain available to patient and family.
--- NOTE | 2023-12-13 17:17 | NUR ---
SHIFT SUMMARY PT TRANSFERED TO MEDICAL FLOOR TODAY. WORKED WITH OT AFTER TRANSFER. UP TO BSC FOR TOILETING. PT RESTING IN BED. DENIES PAIN. TELE RUNNING SIN[employer] [place]OKO. CALL LIGHT IN REACH. DENIES OTHER NEEDS AT THIS TIME
[2023-12-13 19:50] VITALS: BP 147/49
[2023-12-14] MEDS ORDERED: FentaNYL Citrate 50 MCG/ML 2 ML Injection IV PRN (03:25)
[2023-12-14 03:30] VITALS: BP 157/56
--- NOTE | 2023-12-14 03:38 | NUR ---
CALLED HOSPITALIST PT STATES SHE HAS 8 OUT OF 10 PAIN IN HER RIGHT KNEE. NEW ORDERS IN EMAR. PT IS NOW MEDICATED FOR PAIN
--- NOTE | 2023-12-14 04:33 | NUR ---
SHIFT SUMMARY ADMITTED FOR BRADYCARDIA. DNI CODE. HAS A UTI ALSO. ANTIB RX ARE SCHEDULED. TELEMETRY" NSR @ 64 BPM. KOOK @ TIMES. CARDIOLOGY CONSULT IS DR. LIEBERMAN. SHE IS A&O X4. 1 ASSIST TO BSC. REGULAR DIET. ON RA. PAIN MEDICATION GIVEN THIS SHIFT FOR SEVERE RIGHT KNEE PAIN. SHE HAS A HX OF RA. SHE HAS AORTIC VALVE STENOSIS, OUTPT TAVR IS PLANNED.
[2023-12-14 07:22] VITALS: BP 120/95
[2023-12-14 07:30] LABS: BASOPHILS ABSOLUTE AUTO 0.05 K/mm3 (0.00-0.23); BASOPHILS PERCENT AUTO 0 % (0-2); EOSINOPHILS ABSOLUTE AUTO 0.04 K/mm3 (0.00-0.68); EOSINOPHILS PERCENT AUTO 0 % (0-6); Hematocrit 30.3 % (33.0-51.0); IMMATURE GRAN ABSOLUTE AUTO 0.12 K/mm3 (0.00-0.10); IMMATURE GRAN PERCENT AUTO 1 % (0-1); LYMPHOCYTES ABSOLUTE AUTO 1.27 K/mm3 (0.84-5.20); LYMPHOCYTES PERCENT AUTO 8 % (21-46); MONOCYTES ABSOLUTE AUTO 0.48 K/mm3 (0.16-1.47); MONOCYTES PERCENT AUTO 3 % (4-13); Mean Corpuscular HGB 28.8 pg (26.0-34.0); Mean Corpuscular Volume 87 fL (80-100); Mean Platelet Volume 10.6 fL (9.1-12.4); NEUTROPHILS ABSOLUTE AUTO 13.13 K/mm3 (1.96-9.15); NEUTROPHILS PERCENT AUTO 87 % (41-73); Platelet Count 387 K/mm3 (150-400); RDW Coefficient Variation 14.8 % (11.7-14.2); Red Blood Cell Count 3.47 M/mm3 (3.80-5.20); White Blood Cell Count 15.09 K/mm3 (4.00-11.30)
[2023-12-14 07:48] LABS: Bun/Creatinine Ratio 33.4 (12.0-20.0); Calcium, Blood 8.8 mg/dL (8.5-10.1); Creatinine, Blood 0.69 mg/dL (0.40-1.00); Potassium, Blood 4.4 mmol/L (3.5-5.5)
[2023-12-14] MEDS ORDERED: OxyCODONE HCL 5 MG TAB PO PRN (11:25)
[2023-12-14] MEDS ORDERED: HYDRA50 PO (14:54)
[2023-12-14 16:11] VITALS: BP 150/57
--- NOTE | 2023-12-14 17:16 | NUR ---
NO ACUTE CHANGES THIS SHIFT. PT DID NOT FEEL WELL TODAY YESTERDAY. PT REPORTS PAIN IN R KNEE DUE TO R.ATHRITIS. PT HAD DIFFICULT TIME WORKING WITH PT/OT TODAY. MEDICATED FOR PAIN PER EMAR. PT HAS BEEN UP TO THE CHAIR FOR MEALS. 1 ASSIST TO BSC. ORIENTED AND ABLE TO MAKE NEEDS KNONW.
[2023-12-14 19:17] VITALS: BP 140/54
[2023-12-15 04:11] VITALS: BP 136/50
--- NOTE | 2023-12-15 04:19 | NUR ---
SHIFT SUMMARY ADMITTED FOR BRADYCARDIA, ALSO HAS A UTI. DNI CODE. PLAN IS FOR IV ANTIB RX. PAIN RX GIVEN THIS SHIFT. CARDIOLOGY CONSULT IS DR. LIEBERMAN. TELEMETRY: NSR @ 62 BPM. 1 ASSIST TO BSC. SHE IS WEAK WHEN REPOSITIONING OR AMBULATING. PALLIATIVE CARE CONSULT. CARDIAC DIET. ON RA, A&O X4.
[2023-12-15 07:19] VITALS: BP 143/54
[2023-12-15] MEDS ORDERED: Bumetanide 1 MG Tab PO SCH (09:00)
--- NOTE | 2023-12-15 10:30 | NUR ---
PT CURRENTLY RESTING WITH EYES CLOSED, DENIES SOB, DENIES CHEST PAIN, CYBER INCIDENT RESPONDER SHOWER. PER KATHY GOMES, PT SHOWERED INDEPENDENTLY.
[2023-12-15] MEDS ORDERED: TRAM50 PO (13:40)
--- NOTE | 2023-12-15 14:54 | NUR ---
pt discharged home, discharge instructions discussed with pt. no questions or concerns at time of discharge
== END 2023-12-15 15:00 | disposition home health service (06) | DRG 309 ==
LOC: ER 09:41 → PCU 13:22 → EDBEDREQ 13:56 → PCU 14:09 → MEDS 12-13 14:20
PROVIDERS: Physician Assistant; Student in an Organized Health Care Education/Training Program; ADMIT Internal Medicine
DX: I44.0 Atrioventricular block, first degree (principal); E87.1 Hypo-osmolality and hyponatremia; N39.0 Urinary tract infection, site not specified; N17.9 Acute kidney failure, unspecified; I50.32 Chronic diastolic (congestive) heart failure; E86.0 Dehydration; M06.9 Rheumatoid arthritis, unspecified; E78.5 Hyperlipidemia, unspecified; R73.9 Hyperglycemia, unspecified; I11.0 Hypertensive heart disease with heart failure; T44.7X5A Adverse effect of beta-adrenoreceptor antagonists, initial encounter; M31.6 Other giant cell arteritis; D72.829 Elevated white blood cell count, unspecified; I35.0 Nonrheumatic aortic (valve) stenosis; Z90.49 Acquired absence of other specified parts of digestive tract; Z98.49 Cataract extraction status, unspecified eye; Z90.89 Acquired absence of other organs; Z90.710 Acquired absence of both cervix and uterus; Z98.890 Other specified postprocedural states; Z88.6 Allergy status to analgesic agent; Z88.8 Allergy status to other drugs, medicaments and biological substances; Z79.52 Long term (current) use of systemic steroids; Z79.899 Other long term (current) drug therapy
CPT/HCPCS: 36415; 51701; 71045; 71046; 80048; 80053; 81001; 82570; 83605; 83690; 83880; 83930; 83935; 84300; 84439; 84443; 84484; 84540; 85025; 85610; 85730; 87040; 93005; 93010; 97110; 97162; 97165; 97530; 97535; 99285-25; A9270; J0696; J1644; J3010; J7030; J7050; J7512

== ENCOUNTER → 2024-03-08 | Outpatient (CLI) | payer MEDICARE ==
[~2024-03-08] MED LIST changes: +ESCI10 PO; +HYDRA50 PO; +VITAMIN D310 MC4 PO
[2024-03-08 12:01] LABS: BASOPHILS ABSOLUTE AUTO 0.08 K/mm3 (0.00-0.23); BASOPHILS PERCENT AUTO 1 % (0-2); EOSINOPHILS ABSOLUTE AUTO 0.13 K/mm3 (0.00-0.68); EOSINOPHILS PERCENT AUTO 1 % (0-6); Hematocrit 38.3 % (33.0-51.0); Hemoglobin 12.5 g/dL (11.5-16.0); IMMATURE GRAN ABSOLUTE AUTO 0.06 K/mm3 (0.00-0.10); IMMATURE GRAN PERCENT AUTO 1 % (0-1); LYMPHOCYTES ABSOLUTE AUTO 1.63 K/mm3 (0.84-5.20); LYMPHOCYTES PERCENT AUTO 16 % (21-46); MONOCYTES ABSOLUTE AUTO 0.64 K/mm3 (0.16-1.47); MONOCYTES PERCENT AUTO 6 % (4-13); Mean Corpuscular HGB 29.8 pg (26.0-34.0); Mean Corpuscular HGB Conc 32.6 g/dL (31.5-36.5); Mean Corpuscular Volume 91 fL (80-100); Mean Platelet Volume 11.6 fL (9.1-12.4); NEUTROPHILS PERCENT AUTO 75 % (41-73); Platelet Count 405 K/mm3 (150-400); RDW Standard Deviation 49.9 fL (35.1-46.3); Red Blood Cell Count 4.19 M/mm3 (3.80-5.20); White Blood Cell Count 9.94 K/mm3 (4.00-11.30)
[2024-03-08 12:57] LABS: Albumin, Blood 2.9 g/dL (3.4-5.0); Albumin/Globulin Ratio 0.9 (0.8-1.8); Bilirubin, Total 0.3 mg/dL (0.1-1.0); Bun/Creatinine Ratio 39.1 (12.0-20.0); Calcium, Blood 9.7 mg/dL (8.5-10.1); Creatinine, Blood 0.51 mg/dL (0.40-1.00); Globulin, Blood 3.3 g/dL (2.2-4.0); Total Protein, Blood 6.2 g/dL (6.4-8.2)
== END ==
LOC: LAB 09:30 → LAB SHORT 09:30
PROVIDERS: Internal Medicine Rheumatology
DX: M06.9 Rheumatoid arthritis, unspecified (principal)
CPT/HCPCS: 80053; 85025; 85651

== ENCOUNTER 2024-03-26 08:02 | Day surgery (SDC) | payer MEDICARE ==
[2024-03-26] VITALS (9 sets, daily range): BP systolic 141–166; BP diastolic 56–88
[~2024-03-26] VITALS: Ht 149.9 cm; Wt 95.0 kg
[2024-03-26] MEDS ORDERED: NS 250 ML IV ONE (08:21)
[2024-03-26] MEDS ORDERED: Heparin Sodium 1000 Units/ML 10ML MDV ONE (08:21)
[2024-03-26] MEDS ORDERED: Verapamil HCL 2.5 MG/ML 2ML Injection ONE (08:21)
[2024-03-26] MEDS ORDERED: Nitroglycerin 2 MG/20 ML BTL ONE (08:21)
[2024-03-26] MEDS ORDERED: NS 1,000 ML IV ONE ×2 (08:21→08:27)
[2024-03-26] MEDS ORDERED: ASPI325 PO (08:25)
[2024-03-26] MEDS ORDERED: FentaNYL Citrate 50 MCG/ML 2 ML Injection ONE (08:26)
[2024-03-26] MEDS ORDERED: Midazolam HCl 1MG / ML 2ML Vial ONE (08:27)
--- NOTE | 2024-03-26 10:10 | NUR ---
PT BACK TO RECOVERY ROOM. PT SITTING UP IN RECLINER. TR BAND TO R WRIST. PRESSURE DRESSING PLACED TO UPPER ARM. PT GIVEN WATER. PT FAMILY CALLED AND UPDATED THAT PT IS OUT OF PROCEDURE.
--- NOTE | 2024-03-26 10:57 | NUR ---
PT RESTING WITH EYES CLOSED, WAKES EASILY TO VERBAL STIMULI. PRESSURE DRESSING TO AND TR BAND IN PLACE.
--- NOTE | 2024-03-26 11:21 | NUR ---
BEGAN DEFLATING TR BAND. PRESSURE DRESSING TO R UPPER ARM REMOVED. HEMATOMA TO R UPPER ARM IS NOW DISPERSED AND SOFT SOFT. BRUSING NOTED. R RADIAL SITE IS SOFT. NO HEMATOMA NOTED.
--- NOTE | 2024-03-26 12:15 | NUR ---
TR BAND REMOVED, CLOTH DOT APPLIED. NO SWELLING OR BLEEDING AT R WRIST. PT AND SISTER VERBALZE D/C INSTRUCTIONS. IV D/C, CATHETER INTACT.
--- NOTE | 2024-03-26 12:55 | NUR ---
PT WHEELED OUT OF DEPT WITH RIDE.
== END 2024-03-26 11:30 | disposition home or self-care (01) ==
LOC: MHTC 08:02
DX: Z01.810 Encounter for preprocedural cardiovascular examination (principal); I35.0 Nonrheumatic aortic (valve) stenosis; E78.5 Hyperlipidemia, unspecified; I11.0 Hypertensive heart disease with heart failure; I50.30 Unspecified diastolic (congestive) heart failure; M31.6 Other giant cell arteritis; E66.813 Obesity, class 3; E66.01 Morbid (severe) obesity due to excess calories; Z68.41 Body mass index [BMI] 40.0-44.9, adult; M06.9 Rheumatoid arthritis, unspecified; G25.0 Essential tremor; Z88.8 Allergy status to other drugs, medicaments and biological substances; Z88.5 Allergy status to narcotic agent; Z79.82 Long term (current) use of aspirin; Z79.899 Other long term (current) drug therapy
CPT/HCPCS: 76937; 93454; 99152; 99153; C1769; C1887; C1894; J1644; J2250; J3010; J7030; J7050; Q9967

== ENCOUNTER 2024-06-14 21:01 | Emergency (ER) | payer MEDICARE ==
[~2024-06-14] VITALS: Ht 149.9 cm; Wt 95.2 kg
[2024-06-14 21:59] LABS: BASOPHILS ABSOLUTE AUTO 0.06 K/mm3 (0.00-0.23); BASOPHILS PERCENT AUTO 1 % (0-2); EOSINOPHILS ABSOLUTE AUTO 0.11 K/mm3 (0.00-0.68); EOSINOPHILS PERCENT AUTO 1 % (0-6); Hematocrit 34.3 % (33.0-51.0); Hemoglobin 11.5 g/dL (11.5-16.0); IMMATURE GRAN ABSOLUTE AUTO 0.05 K/mm3 (0.00-0.10); IMMATURE GRAN PERCENT AUTO 1 % (0-1); LYMPHOCYTES ABSOLUTE AUTO 2.33 K/mm3 (0.84-5.20); LYMPHOCYTES PERCENT AUTO 23 % (21-46); MONOCYTES ABSOLUTE AUTO 0.88 K/mm3 (0.16-1.47); MONOCYTES PERCENT AUTO 9 % (4-13); Mean Corpuscular HGB 29.6 pg (26.0-34.0); Mean Corpuscular HGB Conc 33.5 g/dL (31.5-36.5); Mean Corpuscular Volume 88 fL (80-100); NEUTROPHILS ABSOLUTE AUTO 6.86 K/mm3 (1.96-9.15); NEUTROPHILS PERCENT AUTO 67 % (41-73); Platelet Count 276 K/mm3 (150-400); RDW Coefficient Variation 15.2 % (11.7-14.2); RDW Standard Deviation 47.7 fL (35.1-46.3); Red Blood Cell Count 3.89 M/mm3 (3.80-5.20); White Blood Cell Count 10.29 K/mm3 (4.00-11.30)
[2024-06-14 22:12] LABS: Albumin, Blood 2.7 g/dL (3.4-5.0); Albumin/Globulin Ratio 0.7 (0.8-1.8); Bilirubin, Total 0.3 mg/dL (0.1-1.0); Bun/Creatinine Ratio 39.1 (12.0-20.0); Calcium, Blood 9.4 mg/dL (8.5-10.1); Creatinine, Blood 0.56 mg/dL (0.40-1.00); Globulin, Blood 4.1 g/dL (2.2-4.0); Magnesium, Blood 1.7 mg/dL (1.6-2.4); Potassium, Blood 3.9 mmol/L (3.5-5.5); Total Protein, Blood 6.8 g/dL (6.4-8.2)
[2024-06-15 06:35] VITALS: BP 171/68
== END 2024-06-15 06:41 | disposition short-term general hospital (02) ==
LOC: ER 21:01
PROVIDERS: Student in an Organized Health Care Education/Training Program
DX: I44.0 Atrioventricular block, first degree (principal); R55 Syncope and collapse; Z95.2 Presence of prosthetic heart valve; I10 Essential (primary) hypertension; M06.9 Rheumatoid arthritis, unspecified; Z79.82 Long term (current) use of aspirin; Z79.52 Long term (current) use of systemic steroids; Z79.899 Other long term (current) drug therapy; Z88.5 Allergy status to narcotic agent; Z88.8 Allergy status to other drugs, medicaments and biological substances
CPT/HCPCS: 71045; 80053; 83735; 83880; 84484; 85025; 85651; 93005; 93010; 99285-25

== ENCOUNTER → 2024-06-14 | Outpatient (CLI) | payer MEDICARE ==
[~2024-06-14] MED LIST changes: +ASPI325 PO
[2024-06-14 12:56] LABS: BASOPHILS ABSOLUTE AUTO 0.08 K/mm3 (0.00-0.23); BASOPHILS PERCENT AUTO 1 % (0-2); EOSINOPHILS ABSOLUTE AUTO 0.17 K/mm3 (0.00-0.68); EOSINOPHILS PERCENT AUTO 2 % (0-6); Hematocrit 37.3 % (33.0-51.0); Hemoglobin 12.3 g/dL (11.5-16.0); IMMATURE GRAN ABSOLUTE AUTO 0.09 K/mm3 (0.00-0.10); IMMATURE GRAN PERCENT AUTO 1 % (0-1); LYMPHOCYTES ABSOLUTE AUTO 1.41 K/mm3 (0.84-5.20); LYMPHOCYTES PERCENT AUTO 13 % (21-46); MONOCYTES ABSOLUTE AUTO 0.66 K/mm3 (0.16-1.47); MONOCYTES PERCENT AUTO 6 % (4-13); Mean Corpuscular HGB 29.9 pg (26.0-34.0); Mean Corpuscular Volume 91 fL (80-100); Mean Platelet Volume 11.4 fL (9.1-12.4); NEUTROPHILS ABSOLUTE AUTO 8.25 K/mm3 (1.96-9.15); NEUTROPHILS PERCENT AUTO 77 % (41-73); Platelet Count 316 K/mm3 (150-400); RDW Coefficient Variation 15.3 % (11.7-14.2); RDW Standard Deviation 50.2 fL (35.1-46.3); Red Blood Cell Count 4.11 M/mm3 (3.80-5.20); White Blood Cell Count 10.66 K/mm3 (4.00-11.30)
[2024-06-14 13:22] LABS: Albumin, Blood 2.9 g/dL (3.4-5.0); Albumin/Globulin Ratio 0.9 (0.8-1.8); Bilirubin, Total 0.4 mg/dL (0.1-1.0); Bun/Creatinine Ratio 34.7 (12.0-20.0); Calcium, Blood 9.2 mg/dL (8.5-10.1); Creatinine, Blood 0.61 mg/dL (0.40-1.00); Globulin, Blood 3.4 g/dL (2.2-4.0); Potassium, Blood 3.6 mmol/L (3.5-5.5); Total Protein, Blood 6.3 g/dL (6.4-8.2)
== END | disposition home or self-care (01) ==
LOC: LAB SHORT 11:32 → LAB 11:32
PROVIDERS: Internal Medicine Rheumatology
DX: M06.9 Rheumatoid arthritis, unspecified (principal)
CPT/HCPCS: 80053; 85025; 85651